=== PATIENT | male | born 1960 | race Caucasian/White ===

== ENCOUNTER 2019-06-16 10:10 | Outpatient (CLI) | payer MEDICARE, SELFPAY ==
[2019-06-16 13:21] LABS: Basophils Absolute Auto 0.1 K/mm3 (0.0-0.1); Basophils Percent Auto 0.7 % (0.2-1.2); Eosinophils Absolute Auto 0.4 K/mm3 (0-0.3); Eosinophils Percent Auto 4.5 % (0-4.4); Hematocrit 44.6 % (42.0-52.0); Hemoglobin 14.2 g/dL (14.0-18.0); Immature Granulocyte Absolute 0.01 K/mm3 (0.00-0.031); Immature Granulocyte Percent A 0.1 % (0-0.5); Lymphocytes Absolute Auto 1.97 K/mm3 (0.9-3.2); Lymphocytes Percent Auto 24.4 % (18.3-44.2); Mean Corpuscular HGB Conc 31.8 g/dl (32-36); Mean Corpuscular Hemoglobin 29.3 pg (26-34); Mean Platelet Volume 11.8 fl (7.4-10.4); Monocytes Absolute Auto 0.6 K/mm3 (0.1-0.6); Monocytes Percent Auto 6.8 % (2.6-8.5); Neutrophils Absolute Auto 5.1 K/mm3 (1.3-6.7); Neutrophils Percent Auto 63.5 % (45.5-73.1); Platelet Count Result 207 k/mm3 (150-375); Red Blood Count 4.85 M/mm3 (4.6-6.20); Red Cell Distribution Width 13.9 % (11.5-14.5); White Blood Count 8.1 K/mm3 (4.5-10.0)
[2019-06-16 13:25] LABS: Alanine Aminotransferase 21 U/L (4-50); Albumin Level 3.9 g/dL (3.5-5.1); Alkaline Phosphatase 78 U/L (38-126); Aspartate Amino Transferase 25 U/L (17-59); Bilirubin,Total 0.5 mg/dL (0.2-1.3); Blood Urea Nitrogen 18 mg/dL (9-20); Calcium 8.9 mg/dL (8.4-10.2); Carbon Dioxide 29 mmol/L (22-30); Chloride 102 mmol/L (98-107); Estimated Glomerular Filt Rate > 60; Glucose 121 mg/dL (75-110); Potassium 4.5 mmol/L (3.4-5.0); Sodium 138 mmol/L (137-145)
[2019-06-16 13:40] LABS: Hemoglobin A1C 6.5 % (<5.7)
[2019-06-16 16:15] LABS: Microalbumin Urine Random 10.8 mg/L (0-16.7)
[2019-06-16 16:26] LABS: Creatinine Urine 197.3 mg/dL; MALB Creatinine Ratio 5.5 mg/g (0-30)
== END 2019-06-16 10:11 | disposition home or self-care (01) ==
PROVIDERS: PCP Internal Medicine; Visit Provider Internal Medicine
DX: E11.9 Type 2 diabetes mellitus without complications (principal)
CPT/HCPCS: 36415; 80053; 82043; 83036; 85025

== ENCOUNTER 2019-11-10 07:26 | Outpatient (CLI) | payer MEDICARE, SELFPAY ==
[2019-11-10 08:19] LABS: Alanine Aminotransferase 19 U/L (4-50); Albumin Level 3.9 g/dL (3.5-5.1); Alkaline Phosphatase 67 U/L (38-126); Anion Gap 8.6 mmol/L (7-16); Aspartate Amino Transferase 22 U/L (17-59); Bilirubin,Total 0.1 mg/dL (0.2-1.3); Blood Urea Nitrogen 17 mg/dL (9-20); Calcium 8.7 mg/dL (8.4-10.2); Carbon Dioxide 33 mmol/L (22-30); Chloride 102 mmol/L (98-107); Cholesterol 131 mg/dL (0-200); Estimated Glomerular Filt Rate > 60; Glucose 110 mg/dL (75-110); HDL Direct 30 mg/dL; Potassium 4.6 mmol/L (3.4-5.0); Sodium 139 mmol/L (137-145); Triglycerides 151 mg/dL (<150)
[2019-11-10 08:29] LABS: Hemoglobin A1C 6.3 % (<5.7)
[2019-11-10 08:30] LABS: LDL Cholesterol Direct 78 mg/dL
[2019-11-10 08:45] LABS: Creatinine Urine 186.9 mg/dL
[2019-11-10 08:48] LABS: Prostate Specific Antigen 4.2 ng/mL (< OR = 4.0)
[2019-11-10 08:49] LABS: MALB Creatinine Ratio 5.9 mg/g (0-30); Microalbumin Urine Random 11.1 mg/L (0-16.7)
== END 2019-11-10 07:27 | disposition home or self-care (01) ==
PROVIDERS: PCP Internal Medicine; Visit Provider Internal Medicine
DX: E11.9 Type 2 diabetes mellitus without complications (principal); E78.00 Pure hypercholesterolemia, unspecified; Z12.5 Encounter for screening for malignant neoplasm of prostate
CPT/HCPCS: 36415; 80053; 80061; 82043; 83036; 84153; G0103

== ENCOUNTER 2020-05-16 07:54 | Outpatient (CLI) | payer MEDICARE, SELFPAY ==
[2020-05-16 08:32] LABS: Basophils Absolute Auto 0.1 K/mm3 (0.0-0.1); Basophils Percent Auto 0.6 % (0.2-1.2); Eosinophils Absolute Auto 0.3 K/mm3 (0-0.3); Eosinophils Percent Auto 3.2 % (0-4.4); Hematocrit 45.8 % (42.0-52.0); Hemoglobin 14.4 g/dL (14.0-18.0); Immature Granulocyte Absolute 0.03 K/mm3 (0.00-0.031); Immature Granulocyte Percent A 0.3 % (0-0.5); Lymphocytes Absolute Auto 1.63 K/mm3 (0.9-3.2); Lymphocytes Percent Auto 18.5 % (18.3-44.2); Mean Corpuscular HGB Conc 31.4 g/dl (32-36); Mean Corpuscular Hemoglobin 29.6 pg (26-34); Mean Platelet Volume 10.6 fl (7.4-10.4); Monocytes Absolute Auto 0.7 K/mm3 (0.1-0.6); Monocytes Percent Auto 8.2 % (2.6-8.5); Neutrophils Absolute Auto 6.1 K/mm3 (1.3-6.7); Neutrophils Percent Auto 69.2 % (45.5-73.1); Platelet Count Result 201 k/mm3 (150-375); Red Blood Count 4.87 M/mm3 (4.6-6.20); Red Cell Distribution Width 13.7 % (11.5-14.5); White Blood Count 8.8 K/mm3 (4.5-10.0)
[2020-05-16 08:43] LABS: Hemoglobin A1C 6.6 % (<5.7)
[2020-05-16 08:45] LABS: Alanine Aminotransferase 26 U/L (4-50); Albumin Level 4.1 g/dL (3.5-5.1); Alkaline Phosphatase 70 U/L (38-126); Anion Gap 3 mmol/L (8-16); Aspartate Amino Transferase 25 U/L (17-59); Bilirubin,Total 0.4 mg/dL (0.2-1.3); Blood Urea Nitrogen 23 mg/dL (9-20); Calcium 9.2 mg/dL (8.4-10.2); Carbon Dioxide 33 mmol/L (22-30); Chloride 104 mmol/L (98-107); Cholesterol 142 mg/dL (0-200); Estimated Glomerular Filt Rate > 60; Glucose 139 mg/dL (75-110); HDL Direct 33 mg/dL; Potassium 4.5 mmol/L (3.4-5.0); Sodium 140 mmol/L (137-145); Triglycerides 151 mg/dL (<150)
[2020-05-16 08:56] LABS: LDL Cholesterol Direct 81 mg/dL
[2020-05-16 09:14] LABS: Prostate Specific Antigen 4.2 ng/mL (< OR = 4.0); Thyroid Stimulating Hormone 0.098 uIU/mL (0.465-4.680)
[2020-05-16 09:20] LABS: Creatinine Urine 244.3 mg/dL
[2020-05-16 09:21] LABS: MALB Creatinine Ratio 4.3 mg/g (0-30); Microalbumin Urine Random 10.5 mg/L (0-16.7)
[2020-05-16 09:30] LABS: Vitamin D 25 Hydroxy 24.2 ng/mL
== END 2020-05-16 07:55 | disposition home or self-care (01) ==
PROVIDERS: PCP Internal Medicine; Visit Provider Internal Medicine
DX: E11.9 Type 2 diabetes mellitus without complications (principal); E78.5 Hyperlipidemia, unspecified; E03.9 Hypothyroidism, unspecified; R56.9 Unspecified convulsions; E78.2 Mixed hyperlipidemia; R97.20 Elevated prostate specific antigen [PSA]; E55.9 Vitamin D deficiency, unspecified
CPT/HCPCS: 36415; 80053; 80061; 82043; 82306; 83036; 84153; 84443; 85025

== ENCOUNTER → 2020-09-04 02:35 | Outpatient (CLI) | payer MEDICARE, SELFPAY ==
[2020-09-04 18:14] LABS: SARS-CoV-2 RNA PCR Negative
== END ==
PROVIDERS: PCP Internal Medicine; Visit Provider Internal Medicine Gastroenterology
DX: Z01.812 Encounter for preprocedural laboratory examination (principal); Z20.822 Contact with and (suspected) exposure to COVID-19
CPT/HCPCS: C9803; U0003; U0005

== ENCOUNTER 2020-09-07 01:10 | Day surgery (SDC) | payer MEDICARE, SELFPAY ==
[2020-08-31 11:29] VITALS: BMI 46.6
[2020-09-07 07:19] VITALS: BP 98/84; PULSE 52; RESP 20; TEMP 36.2; O2SAT 99
[2020-09-07] MEDS: LACTATED RINGERS 1,000 ML 150 ML IV CONT (07:23)
[2020-09-07 07:25] LABS: Glucose Point of Care 125 mg/dl (65-105)
--- NOTE | 2020-09-07 08:07 | WPDANESEPPF ---
Anes - Initial Pre Proc Eval Procedure: Operation Date: 09/07/20 08:45 Proposed Procedures p Esophagogastroduodenoscopy - Houston Gonzalez MD Date/Time: 09/07/20 08:07 Surgeon: Houston Gonzalez MD Pre Op Diagnosis: GERD, Vomiting Patient Data Age: 60 Gender: M Height: 6 ft Weight: 153.1 kg Last Vital Signs Temp 97.2 F L 09/07/20 07:19 Pulse 52 L 09/07/20 07:19 Resp 20 09/07/20 07:19 BP 98/84 L 09/07/20 07:19 Pulse Ox 99 09/07/20 07:19 Allergies Allergy/AdvReac Type Severity Reaction Status Date / Time No Known Allergies Allergy Verified 09/07/20 07:17 Home Medications Medication Instructions Recorded Confirmed Type aspirin 81 mg PO DAILY 03/11/19 09/07/20 History budesonide-formoterol [Symbicort] 2 puff INHALATION Q12H 03/11/19 09/07/20 History citalopram 10 mg PO DAILY 03/11/19 09/07/20 History nystatin 100,000 unit/gram topical 1 applic TOPICAL BID PRN 06/21/19 09/07/20 History powder atorvastatin 40 mg PO DAILY 08/31/20 09/07/20 History furosemide 40 mg tablet 40 mg PO DAILY #90 tablet 08/31/20 09/07/20 Rx levetiracetam 750 mg PO BID 08/31/20 09/07/20 History levothyroxine 100 mcg tablet 100 mcg PO DAILY #90 tablet 08/31/20 09/07/20 Rx metformin 500 mg PO BID 08/31/20 09/07/20 History potassium chloride 10 meq PO DAILY 08/31/20 09/07/20 History pramipexole 1 mg PO BID 08/31/20 09/07/20 History lisinopril 40 mg tablet 40 mg PO BID #180 tablet 09/07/20 09/07/20 Rx Laboratory Tests 09/07/20 07:23 POC Capillary Glucose 125 mg/dl H mg/dl (65-105) Patient hx anesthesia problems: none Family hx anesthesia problems: none PMFSH Past Medical History Medical History Asthma BMI 40.0-44.9, adult COPD (chronic obstructive pulmonary disease) CPAP (continuous positive airway pressure) dependence Due to chronic obstructive sleep apnea Depression Diabetes Type 2. Last A1c was 6.4 on 12/31/2018 DVT (deep venous thrombosis) Gout Hypercholesterolemia Hypertension Peripheral vascular disease Seizure After head injury 2009 Sleep apnea Wrist fracture Surgical History Surgical History H/O thumb surgery Left History of colonoscopy with polypectomy Hx of tonsillectomy Family History Family History Father Family history of heart disease in male family member before age 55 Family history of malignant neoplasm of kidney Family history of lung cancer Family history of diabetes mellitus in first degree relative Family history of congestive heart failure Diabetes mellitus Mother Family history of congestive heart failure Anemia Renal failure COPD (chronic obstructive pulmonary disease) Spinal stenosis Social History Social History Social History: Patient lives home alone. He is and has no children. He is disabled. His sister kentrell is his durable power patent attorney for healthcare. Smoking packs per day: 2 Smoking cigarettes per day: 40.0 Years smoked: 35 Smoking pack-years: 70.00 Smoking status: Former smoker Tobacco type: cigarettes Alcohol intake: never Substance use: current Substance use type: marijuana Other substance usage details: MEDICAL CANNIBAS Last use: Has medical card Living arrangements: alone Additional occupation/education comments: Disabled Gender identity (if verbalized by the patient): Male Spiritual care concerns: No Agree to blood products: Yes Anes - Eval Final PreProcedure Day of Procedure 09/07/20 08:07 Patient weight: morbidly obese Heart: regular rate and rhythm Lungs: clear to auscultation Airway: Mallampati scale class III Neurological: alert and oriented Last oral intake: >/= 8 hours ASA classification: IV Emergent: no Anes
--- NOTE | 2020-09-07 08:34 | PM.HPGS ---
History of Present Illness History of Present Illness Consent: Risks, benefits, and alternatives have been discussed and questions answered. Patient agrees to proceed with procedure. Chief complaint: GERD, Vomiting Narrative: Freddy Saha is a 60 year old male here for egd, had lap band procedure in 2007 and complaining that food feels like it is blocked . Review of Systems Constitutional: Constitutional: Denies headache(s) and Denies weakness Eyes: Eyes: Denies blurry vision ENT: Reports Normal hearing present, Denies headache(s) and Denies neck pain Cardiovascular: Cardiovascular: Denies chest pain and Denies dyspnea Respiratory: Respiratory: Denies dyspnea Gastrointestinal: Gastrointestinal: Reports no additional gastrointestinal complaints Genitourinary: Genitourinary: Denies dysuria Musculoskeletal: Musculoskeletal: Denies neck pain Integumentary/Breasts: Skin/Breast: Denies dry skin Neurologic: Reports Normal hearing present, Denies headache(s) and Denies weakness Psychiatric: Psychiatric: Denies anxiety Endocrine: Endocrine: Denies change in body appearance Hematologic/Lymphatic: Hematologic/Lymphatic: Denies easy bleeding Allergic/Immunologic: Allergic/Immunologic: Denies urticaria PMFSH Past Medical History Medical History (Updated 09/07/20 @ 08:34 by Houston Gonzalez MD) Asthma BMI 40.0-44.9, adult COPD (chronic obstructive pulmonary disease) CPAP (continuous positive airway pressure) dependence Due to chronic obstructive sleep apnea Depression Diabetes Type 2. Last A1c was 6.4 on 12/31/2018 DVT (deep venous thrombosis) Dysphagia Gout Hypercholesterolemia Hypertension Peripheral vascular disease Seizure After head injury 2010 Sleep apnea Wrist fracture Surgical History Surgical History H/O thumb surgery Left History of colonoscopy with polypectomy Hx of tonsillectomy Family History Family History Father Family history of heart disease in male family member before age 55 Family history of malignant neoplasm of kidney Family history of lung cancer Family history of diabetes mellitus in first degree relative Family history of congestive heart failure Diabetes mellitus Mother Family history of congestive heart failure Anemia Renal failure COPD (chronic obstructive pulmonary disease) Spinal stenosis Social History Social History Social History: Patient lives home alone. He is and has no children. He is disabled. His sister kentrell is his durable power ip attorney for healthcare. Smoking packs per day: 2 Smoking cigarettes per day: 40.0 Years smoked: 35 Smoking pack-years: 70.00 Smoking status: Former smoker Tobacco type: cigarettes Alcohol intake: never Substance use: current Substance use type: marijuana Other substance usage details: MEDICAL CANNIBAS Last use: Has medical card Living arrangements: alone Additional occupation/education comments: Disabled Gender identity (if verbalized by the patient): Male Spiritual care concerns: No Agree to blood products: Yes Meds Home Medications and Allergies Home Medications Medication Instructions Recorded Confirmed Type aspirin 81 mg PO DAILY 03/11/19 09/07/20 History budesonide-formoterol [Symbicort] 2 puff INHALATION Q12H 03/11/19 09/07/20 History citalopram 10 mg PO DAILY 03/11/19 09/07/20 History nystatin 100,000 unit/gram topical 1 applic TOPICAL BID PRN 06/21/19 09/07/20 History powder atorvastatin 40 mg PO DAILY 08/31/20 09/07/20 History furosemide 40 mg tablet 40 mg PO DAILY #90 tablet 08/31/20 09/07/20 Rx levetiracetam 750 mg PO BID 08/31/20 09/07/20 History levothyroxine 100 mcg tablet 100 mcg PO DAILY #90 tablet 08/31/20 09/07/20 Rx metformin 500 mg PO BID 08/31/2009/07
[2020-09-07 08:47] VITALS: BP 74/53; PULSE 61; RESP 16; O2SAT 97
[2020-09-07 08:57] VITALS: BP 93/37; PULSE 49; RESP 18; O2SAT 97
[2020-09-07 09:07] VITALS: BP 107/46; PULSE 50; RESP 19; O2SAT 97
== END 2020-09-07 09:22 | disposition home or self-care (01) ==
PROVIDERS: PCP Internal Medicine; Visit Provider Internal Medicine Gastroenterology
PROC: 0DJ08ZZ Inspection of Upper Intestinal Tract, Via Natural or Artificial Opening Endoscopic (ICD-10-PCS; CPT 43235; principal; 2020-09-07 08:45)
DX: R11.2 Nausea with vomiting, unspecified (principal); R13.10 Dysphagia, unspecified; K31.89 Other diseases of stomach and duodenum; Z98.84 Bariatric surgery status; I10 Essential (primary) hypertension; E78.00 Pure hypercholesterolemia, unspecified; E11.52 Type 2 diabetes mellitus with diabetic peripheral angiopathy with gangrene; G47.30 Sleep apnea, unspecified; G47.33 Obstructive sleep apnea (adult) (pediatric); M10.9 Gout, unspecified; Z86.718 Personal history of other venous thrombosis and embolism; Z79.84 Long term (current) use of oral hypoglycemic drugs; F32.9 Major depressive disorder, single episode, unspecified; Z87.891 Personal history of nicotine dependence; F12.90 Cannabis use, unspecified, uncomplicated; E66.01 Morbid (severe) obesity due to excess calories; Z68.42 Body mass index [BMI] 45.0-49.9, adult
CPT/HCPCS: 43235; 82948; C9803; J2704; J7120; U0003; U0005

== ENCOUNTER 2020-09-21 08:05 | Outpatient (CLI) | payer MEDICARE, SELFPAY ==
[2020-09-21 09:15] LABS: Free T4 Free Thyroxine 1.17 ng/mL (0.78-2.19)
== END 2020-09-21 08:06 | disposition home or self-care (01) ==
LOC: ANHLAB 08:07
PROVIDERS: PCP Internal Medicine; Visit Provider Internal Medicine
DX: E03.9 Hypothyroidism, unspecified (principal)
CPT/HCPCS: 36415; 84439; 84443

== ENCOUNTER 2020-10-11 13:11 | Outpatient (CLI) | payer MEDICARE, SELFPAY ==
[2020-10-11 18:15] LABS: MALB Creatinine Ratio < 7.0 mg/g (0-30); Microalbumin Urine Random < 6.0 mg/L (0-16.7)
[2020-10-11 20:01] LABS: Hemoglobin A1C 6.9 % (<5.7)
== END 2020-10-11 13:12 | disposition home or self-care (01) ==
LOC: ANHLAB 13:13
PROVIDERS: PCP Internal Medicine; Visit Provider Internal Medicine
DX: E11.9 Type 2 diabetes mellitus without complications (principal)
CPT/HCPCS: 36415; 82043; 83036

== ENCOUNTER 2021-01-25 08:46 | Outpatient (CLI) | payer MEDICARE, SELFPAY ==
[2021-01-25 09:25] LABS: Hemoglobin A1C 6.8 % (<5.7)
[2021-01-25 09:27] LABS: Alanine Aminotransferase 22 U/L (4-50); Albumin Level 4.1 g/dL (3.5-5.1); Alkaline Phosphatase 76 U/L (38-126); Anion Gap 6 mmol/L (8-16); Aspartate Amino Transferase 22 U/L (17-59); Bilirubin,Total 0.3 mg/dL (0.2-1.3); Blood Urea Nitrogen 17 mg/dL (9-20); Calcium 9.1 mg/dL (8.4-10.2); Carbon Dioxide 33 mmol/L (22-30); Chloride 103 mmol/L (98-107); Estimated Glomerular Filt Rate > 60; Glucose 139 mg/dL (65-110); Potassium 4.6 mmol/L (3.4-5.0); Sodium 142 mmol/L (137-145)
[2021-01-25 09:57] LABS: Prostate Specific Antigen 5.4 ng/mL (< OR = 4.0)
[2021-01-25 10:07] LABS: Microalbumin Urine Random 14.2 mg/L (0-16.7)
[2021-01-25 10:10] LABS: Creatinine Urine 216.2 mg/dL; MALB Creatinine Ratio 6.6 mg/g (0-30)
== END 2021-01-25 08:47 | disposition home or self-care (01) ==
LOC: ANHLAB 08:51
PROVIDERS: PCP Internal Medicine; Visit Provider Internal Medicine
DX: Z12.5 Encounter for screening for malignant neoplasm of prostate (principal); E11.65 Type 2 diabetes mellitus with hyperglycemia; Z51.81 Encounter for therapeutic drug level monitoring; Z79.4 Long term (current) use of insulin; I10 Essential (primary) hypertension; R97.20 Elevated prostate specific antigen [PSA]
CPT/HCPCS: 36415; 80053; 82043; 83036; 84153; G0103

== ENCOUNTER 2021-03-14 07:35 | Outpatient (CLI) | payer MEDICARE, SELFPAY ==
--- NOTE | 2021-04-02 15:42 | WPDSLEEPSTUD ---
Sleep Study Date of Study: 03/14/21 <Cecilia Cohn DO - Last Filed: 04/02/21 16:18> Ordering Provider: Pao Lopez MD <Cecilia Cohn DO - Last Filed: 04/02/21 16:18> Interpreting Physician: Cecilia Cohn DO <Cecilia Cohn DO - Last Filed: 04/02/21 16:18> Sleep Study Type: Split Polysomnogram <Cecilia Cohn DO - Last Filed: 04/02/21 16:18> Height: 1.82 m <Cecilia Cohn DO - Last Filed: 04/02/21 16:18> Weight: 154.675 kg <Cecilia Cohn DO - Last Filed: 04/02/21 16:18> Body Mass Index: 46.9 <Cecilia Cohn DO - Last Filed: 04/02/21 16:18> Neck Circumference (inches): 22 <Cecilia Cohn DO - Last Filed: 04/02/21 16:18> [place]: 4 <Cecilia Cohn DO - Last Filed: 04/02/21 16:18> Reason for Sleep Study Previous diagnosis of CLAYTON in 2003. Was prescribed BPAP 19/15 with back up rate of 14. Current machine is over 10 years old. <Cecilia Cohn DO - Last Filed: 04/02/21 16:18> Sleep History The patient is a 60-year-old male with asthma, COPD, depression, diabetes, gout, hyperlipidemia, hypertension, peripheral vascular disease, seizure disorder and sleep apnea that had a sleep study ordered by Dr. Lopez because the patient needs to requalify to get a new machine. the patient states that he frequently awakens from sleep short of breath. He denies awakening at night with heartburn, belching or cough. He constantly snores loud enough that others complain. He denies having trouble sleeping when he has a cold. He occasionally wakes up gasping for air throughout the night. He denies having breathing problems at night observed by others. He denies sweating excessively at night. He denies heart palpitations or irregular heartbeats throughout the night. He occasionally falls asleep during the day but never while driving. He occasionally experiences loss of muscle tone when extremely emotional. He denies sleep paralysis and hypnagogic/ hypnopompic hallucinations. He frequently feels afraid of going to sleep. He denies having nightmares. He occasionally has thoughts racing through his mind. He frequently feels sad or depressed. He denies having anxiety. He frequently notices parts of his body jerk. He constantly kicks during the night. He occasionally has crawling and aching feelings in his legs as well as leg pain during the night. He denies grinding his teeth during sleep and awakening with morning jaw pain. He is occasionally bothered by pain during the day but never awakened by pain during the night. He denies waking up feeling stiff in the morning with sore and achy muscles. He goes to bed at 1:30 a.m. on weekdays and between 530 and 6 am on the weekends. it takes him 10 minutes to fall asleep. He does not wake up throughout the night. He wakes up at 5:30 a.m. on both the weekends and weekdays. He typically gets 3-4 hours of sleep per night. He does not currently live with anyone. He does not consume any caffeinated beverages within 2 hours of bedtime. He does not engage in physical exercise before bedtime. He will watch television before falling asleep. He does take naps in the afternoon or the evening and they are refreshing. He is a former smoker. He does consume caffeinated soda throughout the day. He denies alcohol use. He does use medical marijuana. <Cecilia Cohn DO - Last Filed: 04/02/21 16:18> [facility] Past Medical History Medical History: Medical History Asthma BMI 40.0-44.9, adult COPD (chronic obstructive pulmonary disease) CPAP (continuous positive airway pressure) dependence Due to chronic obstructive sleep apnea Depression Diabetes Type 2. Last A1c was 6.4 on 12/31/2018 DVT (deep venous thrombosis) Dysphagia Gout Hypercholesterolemia Hypertension Obstructive sleep apnea Peripheral vascular disease Seizu
[2021-04-02 16:10] VITALS: BMI 46.9
== END 2021-03-15 06:47 | disposition home or self-care (01) ==
LOC: ANHCSM 07:39
PROVIDERS: PCP Internal Medicine; Visit Provider Internal Medicine Critical Care Medicine
DX: G47.33 Obstructive sleep apnea (adult) (pediatric) (principal)
CPT/HCPCS: 95811

== ENCOUNTER 2021-04-10 01:08 | Day surgery (SDC) | payer MEDICARE, SELFPAY ==
[2021-03-21 14:26] VITALS: BMI 47.5
[2021-04-10 09:10] LABS: Glucose Point of Care 139 mg/dl (65-105)
[2021-04-10 09:14] VITALS: BP 146/96; PULSE 60; RESP 18; TEMP 36.1; O2SAT 97
[2021-04-10] MEDS: LACTATED RINGERS 1,000 ML 150 ML IV CONT (09:28)
--- NOTE | 2021-04-10 10:05 | WPDANESEPPF ---
Anes - Initial Pre Proc Eval Procedure: Operation Date: 04/10/21 10:30 Proposed Procedures p Screening Colonoscopy - Houston Gonzalez MD Date/Time: 04/10/21 10:05 Surgeon: Houston Gonzalez MD Pre Op Diagnosis: hx of colon polyps Patient Data Age: 60 Gender: M Height: 1.8 m Weight: 155.8 kg Last Vital Signs Temp 97 F L 04/10/21 09:14 Pulse 60 04/10/21 09:14 Resp 18 04/10/21 09:14 BP 146/96 H 04/10/21 09:14 Pulse Ox 97 04/10/21 09:14 Allergies Allergy/AdvReac Type Severity Reaction Status Date / Time No Known Allergies Allergy Verified 04/10/21 09:12 Home Medications Medication Instructions Recorded Confirmed Type aspirin 81 mg PO DAILY 03/11/19 04/10/21 History budesonide-formoterol [Symbicort] 2 puff INHALATION Q12H 03/11/19 03/21/21 History nystatin 100,000 unit/gram topical 1 applic TOPICAL BID PRN #60 g 09/24/20 04/10/21 Rx powder metformin 500 mg tablet 500 mg PO BID #180 tablet 10/15/20 04/10/21 Rx potassium chloride 10 mEq 10 meq PO DAILY #90 tablet 10/15/20 04/10/21 Rx tablet,extended release atorvastatin 40 mg tablet 40 mg PO DAILY #90 tablet 11/09/20 03/21/21 Rx pramipexole 1 mg tablet 1 mg PO BID #180 tablet 11/09/20 04/10/21 Rx levetiracetam 750 mg tablet 750 mg PO BID 90 Days #180 tablet 11/26/20 04/10/21 Rx levothyroxine 100 mcg tablet 100 mcg PO DAILY #90 tablet 11/26/20 04/10/21 Rx dapagliflozin 5 mg tablet 5 mg PO DAILY #30 tablet 02/01/21 04/10/21 Rx furosemide 40 mg tablet 40 mg PO DAILY #90 tablet 02/08/21 04/10/21 Rx lisinopril 40 mg tablet 40 mg PO BID #180 tablet 03/25/21 Rx Laboratory Tests 04/10/21 09:06 POC Capillary Glucose 139 mg/dl H mg/dl (65-105) Patient hx anesthesia problems: none Family hx anesthesia problems: none Results Review: All pre-operative results and documents have been reviewed as part of the pre-operative evaluation. [facility] Past Medical History Medical History Asthma BMI 40.0-44.9, adult COPD (chronic obstructive pulmonary disease) CPAP (continuous positive airway pressure) dependence Due to chronic obstructive sleep apnea Depression Diabetes Type 2. Last A1c was 6.4 on 12/31/2018 DVT (deep venous thrombosis) Dysphagia Gout Hypercholesterolemia Hypertension Obstructive sleep apnea Peripheral vascular disease Seizure After head injury 2009 Sleep apnea Wrist fracture Surgical History Surgical History H/O thumb surgery Left History of colonoscopy with polypectomy Hx of tonsillectomy Family History Family History Father Family history of heart disease in male family member before age 55 Family history of malignant neoplasm of kidney Family history of lung cancer Family history of diabetes mellitus in first degree relative Family history of congestive heart failure Diabetes mellitus Mother Family history of congestive heart failure Anemia Renal failure COPD (chronic obstructive pulmonary disease) Spinal stenosis Social History Social History Social History: Patient lives home alone. He is and has no children. He is disabled. His sister kentrell is his durable power deputy commonwealth's attorney for healthcare. Smoking packs per day: 2 Smoking cigarettes per day: 40.0 Years smoked: 35 Smoking pack-years: 70.00 Smoking status: Former smoker Tobacco type: cigarettes Smoking end date: 04/14/99 Alcohol intake: never Substance use: current Substance use type: marijuana Other substance usage details: MEDICAL CANNIBAS Last use: Has medical card Living arrangements: alone Additional occupation/education comments: Disabled Gender identity (if verbalized by the patient): Male Spiritual care concerns: No Agree to blood
--- NOTE | 2021-04-10 10:05 | PM.HPGS ---
History of Present Illness History of Present Illness Consent: Risks, benefits, and alternatives have been discussed and questions answered. Patient agrees to proceed with procedure. Chief complaint: hx of colon polyps Narrative: Freddy Saha is a 60 year old male here for screening colonoscopy Review of Systems Constitutional: Constitutional: Denies headache(s) and Denies weakness Eyes: Eyes: Denies blurry vision ENT: Reports Normal hearing present, Denies headache(s) and Denies neck pain Cardiovascular: Cardiovascular: Denies chest pain and Denies dyspnea Respiratory: Respiratory: Denies dyspnea Gastrointestinal: Gastrointestinal: Reports no additional gastrointestinal complaints Genitourinary: Genitourinary: Denies dysuria Musculoskeletal: Musculoskeletal: Denies neck pain Integumentary/Breasts: Skin/Breast: Denies dry skin Neurologic: Reports Normal hearing present, Denies headache(s) and Denies weakness Psychiatric: Psychiatric: Denies anxiety Endocrine: Endocrine: Denies change in body appearance Hematologic/Lymphatic: Hematologic/Lymphatic: Denies easy bleeding Allergic/Immunologic: Allergic/Immunologic: Denies urticaria PMFSH Past Medical History Medical History Asthma BMI 40.0-44.9, adult COPD (chronic obstructive pulmonary disease) CPAP (continuous positive airway pressure) dependence Due to chronic obstructive sleep apnea Depression Diabetes Type 2. Last A1c was 6.4 on 12/31/2018 DVT (deep venous thrombosis) Dysphagia Gout Hypercholesterolemia Hypertension Obstructive sleep apnea Peripheral vascular disease Seizure After head injury 2009 Sleep apnea Wrist fracture Surgical History Surgical History H/O thumb surgery Left History of colonoscopy with polypectomy Hx of tonsillectomy Family History Family History Father Family history of heart disease in male family member before age 55 Family history of malignant neoplasm of kidney Family history of lung cancer Family history of diabetes mellitus in first degree relative Family history of congestive heart failure Diabetes mellitus Mother Family history of congestive heart failure Anemia Renal failure COPD (chronic obstructive pulmonary disease) Spinal stenosis Social History Social History Social History: Patient lives home alone. He is and has no children. He is disabled. His sister kentrell is his durable power language instructor for healthcare. Smoking packs per day: 2 Smoking cigarettes per day: 40.0 Years smoked: 35 Smoking pack-years: 70.00 Smoking status: Former smoker Tobacco type: cigarettes Smoking end date: 04/14/99 Alcohol intake: never Substance use: current Substance use type: marijuana Other substance usage details: MEDICAL CANNIBAS Last use: Has medical card Living arrangements: alone Additional occupation/education comments: Disabled Gender identity (if verbalized by the patient): Male Spiritual care concerns: No Agree to blood products: Yes Meds Home Medications and Allergies Home Medications Medication Instructions Recorded Confirmed Type aspirin 81 mg PO DAILY 03/11/19 04/10/21 History budesonide-formoterol [Symbicort] 2 puff INHALATION Q12H 03/11/19 03/21/21 History nystatin 100,000 unit/gram topical 1 applic TOPICAL BID PRN #60 g 09/24/20 04/10/21 Rx powder metformin 500 mg tablet 500 mg PO BID #180 tablet 10/15/20 04/10/21 Rx potassium chloride 10 mEq 10 meq PO DAILY #90 tablet 10/15/20 04/10/21 Rx tablet,extended release atorvastatin 40 mg tablet 40 mg PO DAILY #90 tablet 11/09/20 03/21/21 Rx pramipexole 1 mg tablet 1 mg PO BID #180 tablet 11/09/20 04/10/21 Rx levetiracetam 750 mg tablet 750 mg PO BID 9
[2021-04-10 10:36] VITALS: BP 141/102; PULSE 58; RESP 22; O2SAT 94
[2021-04-10 10:46] VITALS: BP 116/72; PULSE 56; RESP 26; O2SAT 97
[2021-04-10 10:56] VITALS: BP 125/105; PULSE 53; RESP 21; O2SAT 97
== END 2021-04-10 11:11 | disposition home or self-care (01) ==
PROVIDERS: PCP Internal Medicine; Visit Provider Internal Medicine Gastroenterology
PROC: 0DJD8ZZ Inspection of Lower Intestinal Tract, Via Natural or Artificial Opening Endoscopic (ICD-10-PCS; CPT 45378; principal; 2021-04-10 10:30)
DX: Z12.11 Encounter for screening for malignant neoplasm of colon (principal); D12.3 Benign neoplasm of transverse colon; K63.5 Polyp of colon; K64.8 Other hemorrhoids; J44.9 Chronic obstructive pulmonary disease, unspecified; F32.9 Major depressive disorder, single episode, unspecified; I10 Essential (primary) hypertension; E78.00 Pure hypercholesterolemia, unspecified; M10.9 Gout, unspecified; G47.33 Obstructive sleep apnea (adult) (pediatric); E11.51 Type 2 diabetes mellitus with diabetic peripheral angiopathy without gangrene; Z79.84 Long term (current) use of oral hypoglycemic drugs; Z79.82 Long term (current) use of aspirin; Z79.51 Long term (current) use of inhaled steroids; Z87.891 Personal history of nicotine dependence; F12.90 Cannabis use, unspecified, uncomplicated; E66.01 Morbid (severe) obesity due to excess calories; Z68.42 Body mass index [BMI] 45.0-49.9, adult
CPT/HCPCS: 45380; 45385; 82948; 88305; J2704; J7120

== ENCOUNTER 2021-05-03 07:00 | Outpatient (CLI) | payer MEDICARE, SELFPAY ==
[2021-05-03 07:39] LABS: Basophils Absolute Auto 0.1 K/mm3 (0.0-0.1); Basophils Percent Auto 0.7 % (0.2-1.2); Eosinophils Absolute Auto 0.3 K/mm3 (0-0.3); Eosinophils Percent Auto 3.1 % (0-4.4); Hematocrit 48.8 % (42.0-52.0); Hemoglobin 15.4 g/dL (14.0-18.0); Immature Granulocyte Absolute 0.03 K/mm3 (0.00-0.031); Immature Granulocyte Percent A 0.3 % (0-0.5); Lymphocytes Absolute Auto 2.33 K/mm3 (0.9-3.2); Lymphocytes Percent Auto 26.5 % (18.3-44.2); Mean Corpuscular HGB Conc 31.6 g/dl (32-36); Mean Corpuscular Hemoglobin 29.1 pg (26-34); Mean Corpuscular Volume 92.1 fl (80-100); Mean Platelet Volume 10.2 fl (7.4-10.4); Monocytes Absolute Auto 0.6 K/mm3 (0.1-0.6); Monocytes Percent Auto 7.3 % (2.6-8.5); Neutrophils Absolute Auto 5.5 K/mm3 (1.3-6.7); Neutrophils Percent Auto 62.1 % (45.5-73.1); Platelet Count Result 228 k/mm3 (150-375); Red Cell Distribution Width 14.4 % (11.5-14.5); White Blood Count 8.8 K/mm3 (4.5-10.0)
[2021-05-03 08:08] LABS: Creatinine Urine 274.9 mg/dL
[2021-05-03 08:11] LABS: MALB Creatinine Ratio 8.2 mg/g (0-30); Microalbumin Urine Random 22.6 mg/L (0-16.7)
[2021-05-03 08:38] LABS: Hemoglobin A1C 7.1 % (<5.7)
[2021-05-03 09:06] LABS: Vitamin D 25 Hydroxy < 12.8 ng/mL
[2021-05-03 09:34] LABS: Alanine Aminotransferase 31 U/L (4-50); Albumin Level 4.2 g/dL (3.5-5.1); Alkaline Phosphatase 84 U/L (38-126); Anion Gap 5 mmol/L (8-16); Aspartate Amino Transferase 26 U/L (17-59); Bilirubin,Total 0.4 mg/dL (0.2-1.3); Blood Urea Nitrogen 20 mg/dL (9-20); Carbon Dioxide 33 mmol/L (22-30); Chloride 102 mmol/L (98-107); Cholesterol 139 mg/dL (0-200); Estimated Glomerular Filt Rate > 60; Glucose 145 mg/dL (65-110); HDL Direct 31 mg/dL; Sodium 140 mmol/L (137-145); Triglycerides 110 mg/dL (<150)
[2021-05-03 09:44] LABS: LDL Cholesterol Direct 86 mg/dL
[2021-05-03 10:03] LABS: Prostate Specific Antigen 4.3 ng/mL (< OR = 4.0)
== END 2021-05-03 07:01 | disposition home or self-care (01) ==
PROVIDERS: PCP Internal Medicine; Visit Provider Internal Medicine
DX: E55.9 Vitamin D deficiency, unspecified (principal); E03.9 Hypothyroidism, unspecified; E11.9 Type 2 diabetes mellitus without complications; E11.65 Type 2 diabetes mellitus with hyperglycemia; E78.00 Pure hypercholesterolemia, unspecified; F32.9 Major depressive disorder, single episode, unspecified; I10 Essential (primary) hypertension; R56.9 Unspecified convulsions; R97.20 Elevated prostate specific antigen [PSA]; Z79.4 Long term (current) use of insulin; Z12.5 Encounter for screening for malignant neoplasm of prostate; E78.2 Mixed hyperlipidemia
CPT/HCPCS: 36415; 80053; 80061; 82043; 82306; 83036; 84153; 84443; 85025; G0103

== ENCOUNTER 2021-08-09 09:36 | Outpatient (CLI) | payer MEDICARE, SELFPAY ==
[2021-08-09 10:28] LABS: Hemoglobin A1C 6.8 % (<5.7)
[2021-08-09 10:30] LABS: Alanine Aminotransferase 27 U/L (4-50); Alkaline Phosphatase 81 U/L (38-126); Anion Gap 5 mmol/L (8-16); Aspartate Amino Transferase 26 U/L (17-59); Bilirubin,Total 0.2 mg/dL (0.2-1.3); Blood Urea Nitrogen 16 mg/dL (9-20); Carbon Dioxide 30 mmol/L (22-30); Chloride 105 mmol/L (98-107); Estimated Glomerular Filt Rate > 60; Glucose 126 mg/dL (65-110); Potassium 4.3 mmol/L (3.4-5.0); Sodium 140 mmol/L (137-145)
[2021-08-09 10:33] LABS: Creatinine Urine 79.2 mg/dL
[2021-08-09 10:38] LABS: MALB Creatinine Ratio 19.9 mg/g (0-30); Microalbumin Urine Random 15.8 mg/L (0-16.7)
== END 2021-08-09 09:37 | disposition home or self-care (01) ==
PROVIDERS: Visit Provider Internal Medicine
DX: E11.65 Type 2 diabetes mellitus with hyperglycemia (principal); Z79.4 Long term (current) use of insulin
CPT/HCPCS: 36415; 80053; 82043; 83036

== ENCOUNTER 2021-08-14 07:31 | Outpatient (CLI) | payer MEDICARE, SELFPAY ==
--- NOTE | ~2021-08-14 | XR_ITS ---
EXAMINATION: XR barium swallow modified DATE: 08/14/2021 08:29 INDICATION: Dysphagia TECHNIQUE: Modified barium esophagram was performed by myself to administered fluoroscopy, in conjun ction with speech pathologist who administered barium in varying consistencies as per speech patholog ist documentation. This was recorded on tape. A single fluoroscopic spot image was recorded. The DAP for this procedure was 2.463 Gycm2. Fluoroscopy exposure time was 2.0 minutes. FINDINGS: Oral stage: Adequate function. Pharyngeal phase: Adequate function. Laryngeal penetration: None. Aspiration: None. Laryngeal sensitivity: Not applicable. IMPRESSION: Normal modified barium swallow. Please refer to speech pathologist findings and specific feeding recommendations. Reviewed, dictated and finalized at location A.
--- NOTE | 2021-08-14 16:30 | STOPEVAL ---
MODIFIED BARIUM SWALLOW EVALUATION: Thank you for referring Freddy Saha to [facility].? Attending Provider: Josh Rosenberg MD Modified Barium Swallow Evaluation Recent Swallowing History Reports Dysphagia Yes: hard time getting food to go down Duration of Dysphagia 12 years History of Pneumonia No Reported Difficult Consistencies Solids Diet Prior to Swallow Evaluation Regular, Level 7 Liquid Consistency Prior to Swallow Thin (0) Evaluation Consistency Solid Consistency Method of Presentation Spoon Oral Preparatory Symptoms None Oral Phase Symptoms None Pharyngeal Phase Symptoms None Severity of Vallecular Residue None - 0% No Residue Severity of Pyriform Sinus Residue None - 0% No Residue Cervical/Esophageal Symptoms None Mixed Consistency Method of Presentation Spoon Oral Preparatory Symptoms None Oral Phase Symptoms None Pharyngeal Phase Symptoms None Severity of Vallecular Residue None - 0% No Residue Severity of Pyriform Sinus Residue None - 0% No Residue 8 Point Laryngeal Penetration-Aspiration Material Does Not Enter Airway Scale Cervical/Esophageal Symptoms None Pureed Consistency Method of Presentation Spoon Oral Preparatory Symptoms None Oral Phase Symptoms None Pharyngeal Phase Symptoms None Severity of Vallecular Residue None - 0% No Residue Severity of Pyriform Sinus Residue None - 0% No Residue 8 Point Laryngeal Penetration-Aspiration Material Does Not Enter Airway Scale Cervical/Esophageal Symptoms None Thin Uncontrolled 2 Method of Presentation Straw Oral Preparatory Symptoms None Oral Phase Symptoms None Pharyngeal Phase Symptoms None Severity of Vallecular Residue None - 0% No Residue Severity of Pyriform Sinus Residue None - 0% No Residue 8 Point Laryngeal Penetration-Aspiration Material Does Not Enter Airway Scale Cervical/Esophageal Symptoms None Thin Uncontrolled 1 Method of Presentation Cup Oral Preparatory Symptoms None Oral Phase Symptoms None Pharyngeal Phase Symptoms None Severity of Vallecular Residue None - 0% No Residue Severity of Pyriform Sinus Residue None - 0% No Residue 8 Point Laryngeal Penetration-Aspiration Material Does Not Enter Airway Scale Cervical/Esophageal Symptoms None Thin 5 mL Method of Presentation Spoon Oral Preparatory Symptoms None Oral Phase Symptoms None Pharyngeal Phase Symptoms None Severity of Vallecular Residue None - 0% No Residue Severity of Pyriform Sinus Residue None - 0% No Residue 8 Point Laryngeal Penetration-Aspiration Material Does Not Enter Airway Scale
== END 2021-08-14 07:32 | disposition home or self-care (01) ==
PROVIDERS: PCP Internal Medicine; Visit Provider Internal Medicine
DX: R13.10 Dysphagia, unspecified (principal)
CPT/HCPCS: 92611

== ENCOUNTER 2022-06-27 10:01 | Outpatient (CLI) | payer MEDICARE, SELFPAY ==
[2022-06-27 11:32] LABS: Alanine Aminotransferase 26 U/L (6-50); Albumin Level 4.3 g/dL (3.5-5.1); Alkaline Phosphatase 86 U/L (38-126); Anion Gap 6 mmol/L (8-16); Aspartate Amino Transferase 27 U/L (17-59); Bilirubin,Total 0.5 mg/dL (0.2-1.3); Blood Urea Nitrogen 17 mg/dL (9-20); Carbon Dioxide 33 mmol/L (22-30); Chloride 102 mmol/L (98-107); Cholesterol 150 mg/dL (0-200); Estimated Glomerular Filt Rate > 60; Glucose 117 mg/dL (65-110); HDL Direct 28 mg/dL; Potassium 4.2 mmol/L (3.4-5.0); Sodium 141 mmol/L (137-145); Triglycerides 224 mg/dL (<150)
[2022-06-27 11:42] LABS: LDL Cholesterol Direct 87 mg/dL
[2022-06-27 12:00] LABS: Prostate Specific Antigen 5.4 ng/mL (< OR = 4.0)
== END 2022-06-27 10:02 | disposition home or self-care (01) ==
PROVIDERS: PCP Internal Medicine; Visit Provider Nurse Practitioner
DX: E55.9 Vitamin D deficiency, unspecified (principal); E03.9 Hypothyroidism, unspecified; R97.20 Elevated prostate specific antigen [PSA]; E78.5 Hyperlipidemia, unspecified; Z79.4 Long term (current) use of insulin; E11.65 Type 2 diabetes mellitus with hyperglycemia
CPT/HCPCS: 36415; 80053; 80061; 82306; 83036; 84153; 84443

== ENCOUNTER 2022-07-02 14:51 | Outpatient (CLI) | payer MEDICARE, SELFPAY ==
--- NOTE | ~2022-07-02 | CT_ITS ---
EXAMINATION: CT soft tissue neck wo con DATE: 07/02/2022 15:10 INDICATION: Left neck mass. TECHNIQUE: Computed tomography (CT) of the neck was performed without intravenous contrast. Automated exposure control and iterative reconstruction technique were employed. The dose-length product was 5 61.13 mGy-cm. COMPARISON: Brain MRI 12/07/2012 FINDINGS: There is a 3.6 x 1.7 cm mass in left parotid gland. There are no pathologically enlarged ly mph nodes. There is mild cervical spondylosis. IMPRESSION: 1. 3.6 x 1.7 cm mass in left parotid gland, new from 12/07/12. The differential diagnosis includes tasha gn mixed tumor, Warthin tumor, and less likely primary malignancy. Reviewed, dictated and finalized at location A. IMPRESSION: 1. 3.6 x 1.7 cm mass in left parotid gland, new from 12/07/12. The differential d iagnosis includes benign mixed tumor, Warthin tumor, and less likely primary ma lignancy.
== END 2022-07-02 14:52 | disposition home or self-care (01) ==
PROVIDERS: PCP Internal Medicine; Visit Provider Nurse Practitioner
DX: K11.9 Disease of salivary gland, unspecified (principal)
CPT/HCPCS: 70490

== ENCOUNTER 2022-08-11 08:42 | Outpatient (CLI) | payer MEDICARE, SELFPAY ==
--- NOTE | ~2022-08-11 | US_ITS ---
EXAMINATION: US FNA w image guidance DATE: 08/11/2022 09:42 INDICATION: Other diseases of salivary glands. TECHNIQUE: The procedure and its benefits and risks were discussed with the patient. Risks specifically discusse d included bleeding, infection, and nerve injury. The patient verbalized understanding of the risks a nd agreed to proceed. The left face was prepped and draped in the usual sterile manner. 1% lidocaine was used for local anesthesia. An 18-gauge spinal needle was inserted into the predominantly cystic left parotid mass using ultrasound guidance. 8 mL frausto, cloudy fluid was aspirated. 6 passes were made with a 25G needle into the remaining solid portion of the lesion under ultrasound guidance. There w ere no immediate complications. FINDINGS: Grayscale ultrasound images demonstrate needles advanced into a 3.4 x 2.8 x 2.5 cm predominantly cyst ic mass in left parotid gland for biopsy. IMPRESSION: 1. Ultrasound-guided fine needle aspiration of a 3.4 cm cystic mass in left parotid gland. Reviewed, dictated and finalized at location A. IMPRESSION: 1. Ultrasound-guided fine needle aspiration of a 3.4 cm cystic mass in left pa rotid gland.
== END 2022-08-11 08:43 | disposition home or self-care (01) ==
PROVIDERS: PCP Internal Medicine; Visit Provider Otolaryngology
DX: K11.8 Other diseases of salivary glands (principal)
CPT/HCPCS: 10005; 88108; 88305

== ENCOUNTER 2023-01-06 08:12 | Outpatient (CLI) | payer MEDICARE, SELFPAY ==
[2023-01-06 08:47] LABS: Alanine Aminotransferase 29 U/L (6-50); Alkaline Phosphatase 64 U/L (38-126); Anion Gap 6 mmol/L (8-16); Aspartate Amino Transferase 27 U/L (17-59); Bilirubin,Total 0.6 mg/dL (0.2-1.3); Blood Urea Nitrogen 21 mg/dL (9-20); Calcium 8.8 mg/dL (8.4-10.2); Carbon Dioxide 31 mmol/L (22-30); Chloride 103 mmol/L (98-107); Cholesterol 168 mg/dL (0-200); Estimated Glomerular Filt Rate > 60; Glucose 121 mg/dL (65-110); HDL Direct 33 mg/dL; Potassium 4.2 mmol/L (3.4-5.0); Sodium 140 mmol/L (137-145); Triglycerides 150 mg/dL (<150)
[2023-01-06 08:51] LABS: Hemoglobin A1C 6.8 % (<5.7)
[2023-01-06 08:58] LABS: LDL Cholesterol Direct 100 mg/dL
== END 2023-01-06 08:13 | disposition home or self-care (01) ==
PROVIDERS: PCP Nurse Practitioner; Visit Provider Nurse Practitioner
DX: E78.5 Hyperlipidemia, unspecified (principal); E11.9 Type 2 diabetes mellitus without complications
CPT/HCPCS: 36415; 80053; 80061; 83036

== ENCOUNTER 2023-01-06 23:39 | Observation (INO) | payer MEDICARE, SELFPAY ==
--- NOTE | ~2023-01-06 | CT_ITS ---
CT of the Abdomen and Pelvis: Indication: Pelvic pain Technique: 2.5 mm axial scans were obtained through the abdomen and pelvis following intravenous adm inistration of 100 cc of Omnipaque 350. Dose reduction technique was used on this scan by utilizing a utomated exposure control and iterative reconstruction technique. The dose-length product (DLP) was 1 972.88 mGy-cm. Findings: Scans through the lung bases are unremarkable. The liver, spleen, pancreas, adrenals and kidneys are within normal limits. Probable small gallstones present. There are atherosclerotic calcifications of the aorta. No lymphadenopathy. No bowel obstruction or bowel wall thickening. There is no evidence to suggest acute appendicitis. LA P-band in place. Images through the pelvis were performed. Urinary bladder unremarkable. Prostate gland and seminal ve sicles are unremarkable. Small fat-containing left inguinal hernia noted. No ascites. Impression: Small fat-containing left inguinal hernia. Probable small gallstones. Lap band in place. Reviewed, dictated and finalized at location . Impression: Small fat-containing left inguinal hernia. Probable small gallstones. Lap band in place.
--- NOTE | ~2023-01-06 | MR_ITS ---
EXAMINATION: MR lumbar spine wo con DATE: 01/07/2023 17:40 INDICATION: low back pain, history of prostate cancer. TECHNIQUE: Magnetic resonance imaging (MRI) of the lumbar spine was performed without intravenous con trast. Sequences included sagittal T2-weighted FSE, sagittal T2-weighted FS FSE, sagittal T1-weighted FSE, and axial T2-weighted FSE. COMPARISON: X-ray L-spine 01/02/2014 FINDINGS: The last fully formed and hydrated disc is designated L5-S1. The marrow signal is benign an d homogenous. Conus terminates at L2. Multilevel loss of disc height and hydration. The following dis c levels are specifically discussed: T11-T12: Mild diffuse bulge. There is mild facet joint osteoarthritis. There is no neural foraminal s tenosis. There is no central canal stenosis. T12-L1: Mild diffuse bulge. There is mild facet joint osteoarthritis. There is no neural foraminal st enosis. There is no central canal stenosis. L1-L2: 3 mm left paracentral disc protrusion. There is moderate facet joint osteoarthritis. There is no neural foraminal stenosis. There is no central canal stenosis. L2-L3: The disc does not extend beyond the endplate margin. There is moderate bilateral facet joint o steoarthritis. There is no neural foraminal stenosis. There is no central canal stenosis. L3-L4: 8mm left subarticular extrusion extending 11 mm along the posterior aspect of the L4 vertebral body. There is moderate bilateral facet joint osteoarthritis. There is mild bilateral neural foramin al stenosis. There is severe central canal stenosis. L4-L5: 5 mm right lateral disc protrusion. Posterior disc rent. There is moderate bilateral facet katty nt osteoarthritis. There is mild right neural foraminal stenosis. There is moderate central canal adan nosis. L5-S1: Moderate diffuse bulge. Posterior disc rent. There is severe bilateral facet joint osteoarthri tis. There is moderate right and severe left neural foraminal stenosis. There is moderate central can al stenosis. IMPRESSION: 8 x 11 mm left L3-4 disc extrusion causing severe central canal stenosis. Severe left neural foraminal stenosis at L5-S1 secondary to degenerative disc and facet change. Degenerative disc changes at multiple additional levels as detailed above. Multilevel moderate facet arthropathy. Reviewed, dictated and finalized at location K. IMPRESSION: 8 x 11 mm left L3-4 disc extrusion causing severe central canal stenosis. Severe left neural foraminal stenosis at L5-S1 secondary to degenerative disc a nd facet change. Degenerative disc changes at multiple additional levels as detailed above. Multilevel moderate facet arthropathy.
--- NOTE | ~2023-01-06 | US_ITS ---
EXAMINATION: US scrotum doppler DATE: 01/07/2023 20:35 INDICATION: swollen testicles . TECHNIQUE: Grayscale and Doppler ultrasound images of the testes were obtained. COMPARISON: None. FINDINGS: The right testis measures 4.2 x 2.6 x 3.0 cm. The left testis measures 4.4 x 2.6 x 3.2 cm. No testicular mass. There is normal vascular flow to both testes. The right epididymis is heterogeneo us, with normal vascular flow. The left epididymis contains multiple subcentimeter cysts, with normal vascular flow. There is no varicocele or hydrocele. IMPRESSION: Scrotal wall thickening, may be secondary to edema or inflammatory change. Small bilateral hydroceles. Debris noted within the right hydrocele. Reviewed, dictated and finalized at location K.
[2023-01-06 23:41] VITALS: BP 120/64; PULSE 60; RESP 15; TEMP 36.6; O2SAT 96
[2023-01-07] VITALS (7 sets, daily range): BP systolic 130–155; BP diastolic 63–79; PULSE 50–92; RESP 15–18; TEMP 36.4; O2SAT 93–98
[2023-01-07 00:37] LABS: Basophils Absolute Auto 0.1 K/mm3 (0.0-0.1); Basophils Percent Auto 0.7 % (0.2-1.2); Eosinophils Absolute Auto 0.3 K/mm3 (0-0.3); Eosinophils Percent Auto 3.4 % (0-4.4); Hematocrit 43.3 % (42.0-52.0); Hemoglobin 13.7 g/dL (14.0-18.0); Immature Granulocyte Absolute 0.01 K/mm3 (0.00-0.031); Immature Granulocyte Percent A 0.1 % (0-0.5); Lymphocytes Absolute Auto 1.83 K/mm3 (0.9-3.2); Lymphocytes Percent Auto 21.4 % (18.3-44.2); Mean Corpuscular HGB Conc 31.6 g/dl (32-36); Mean Corpuscular Hemoglobin 29.3 pg (26-34); Mean Corpuscular Volume 92.5 fl (80-100); Mean Platelet Volume 10.9 fl (7.4-10.4); Monocytes Absolute Auto 0.6 K/mm3 (0.1-0.6); Monocytes Percent Auto 7.4 % (2.6-8.5); Neutrophils Absolute Auto 5.7 K/mm3 (1.3-6.7); Platelet Count Result 202 k/mm3 (150-375); Red Blood Count 4.68 M/mm3 (4.6-6.20); Red Cell Distribution Width 13.7 % (11.5-14.5); White Blood Count 8.6 K/mm3 (4.5-10.0)
[2023-01-07] MEDS: HYDROmorphone HCL INJ (*CRX) 1 MG/ML SYR IV PUSH (00:47)
[2023-01-07 00:49] LABS: Prothrombin Time 13.4 Seconds (11.1-14.7)
[2023-01-07 00:54] LABS: Alanine Aminotransferase 27 U/L (6-50); Albumin Level 3.9 g/dL (3.5-5.1); Alkaline Phosphatase 60 U/L (38-126); Anion Gap 4 mmol/L (8-16); Aspartate Amino Transferase 26 U/L (17-59); Bilirubin,Total 0.5 mg/dL (0.2-1.3); Blood Urea Nitrogen 19 mg/dL (9-20); Calcium 8.5 mg/dL (8.4-10.2); Carbon Dioxide 31 mmol/L (22-30); Chloride 103 mmol/L (98-107); Estimated CRCL calculation 110 ml/min; Estimated Glomerular Filt Rate > 60; Glucose 97 mg/dL (65-110); Potassium 3.7 mmol/L (3.4-5.0); Sodium 138 mmol/L (137-145)
[2023-01-07 01:13] LABS: Appearance Urine Clear (Clear); Bacteria Urine None Seen /hpf; Bilirubin Urine Negative (Negative); Blood Urine Negative (Negative); Color Urine Yellow (Yellow); Glucose Urine UA 1+ mg/dL (Negative); Ketones Urine Negative (Negative); Leukocyte Esterase Ur Negative LEU/UL (Negative); Nitrate Urine Negative (Negative); Non Pathogenic Casts 0-2; Protein Urine Trace mg/dL (Negative); RBC Urine 0-2 /hpf (0-2); Specific Grav Ur 1.031 (1.001-1.035); Squamous Epithelial Cell Urine None seen /hpf (Few); WBC Urine 0-5 /hpf; pH Urine 5.5 (5.0-9.0)
--- NOTE | 2023-01-07 01:21 | ED.GENADULT ---
HPI - General Adult General Chief complaint: Extremity Injury, Lower Stated complaint: BILATERAL LEG PAIN Time Seen by Provider: 01/06/23 23:46 History of Present Illness HPI narrative: Patient brought to the emergency department by EMS. He developed severe pelvic pain just prior to arrival. He had prostate biopsy done 2 months ago. Since then he has had increasing perineal pain. Normally it is worse with movement however tonight when he laid down in his bed became severe. Upon my exam he is comfortable. Denies all other review of systems. Also has history of sciatica Related Data Home Medications Medication Instructions Recorded Confirmed aspirin 81 mg chewable tablet 81 mg PO DAILY 03/11/19 10/29/22 Allergies Allergy/AdvReac Type Severity Reaction Status Date / Time No Known Allergies Allergy Verified 12/30/22 08:59 Review of Systems Review of Systems: Review of systems negative except what is documented in the [facility] Past Medical History Medical History Asthma BMI 40.0-44.9, adult COPD (chronic obstructive pulmonary disease) Depression Diabetes Type 2. Last A1c was 6.4 on 12/31/2018 DVT (deep venous thrombosis) Dysphagia Gout Hypercholesterolemia Hypertension Obesity Obstructive sleep apnea Peripheral vascular disease Prostate cancer Seizure After head injury 2009 Sleep apnea Wrist fracture Surgical History Surgical History H/O thumb surgery Left History of biopsy History of colonoscopy with polypectomy Hx of tonsillectomy Family History Family History Father Family history of heart disease in male family member before age 55 Family history of malignant neoplasm of kidney Family history of lung cancer Family history of diabetes mellitus in first degree relative Family history of congestive heart failure Diabetes mellitus Mother Family history of congestive heart failure Anemia Renal failure COPD (chronic obstructive pulmonary disease) Spinal stenosis Social History Social History Social History: Patient lives home alone. He is and has no children. He is disabled. His sister kentrell is his durable power property valuer for healthcare. Smoking packs per day: 2 Smoking cigarettes per day: 40.0 Years smoked: 35 Smoking pack-years: 70.00 Smoking status: Former smoker Tobacco type: cigarettes Smoking end date: 04/14/99 Alcohol intake: never Substance use: current Substance use type: marijuana Other substance usage details: MEDICAL CANNIBAS Last use: Has medical card Lack of Transportation: No Lack of Food: Sometimes True Current Housing: I Have Housing Concerned About Future Housing: No Difficulty Paying Gas/Electric Bills: Decline to Answer Difficulty Paying for Meds: Decline to Answer Currently Unemployed: Decline to Answer Education: High School Diploma/GED Difficulty w/ Childcare or Family Care: No Living arrangements: alone Occupation/Education: other Additional occupation/education comments: Disabled Gender identity (if verbalized by the patient): Male Spiritual care concerns: No Agree to blood products: Yes Exam Narrative: GENERAL: Well-appearing, well-nourished, and in no acute distress. HEAD: Normocephalic, atraumatic. EYES: PERRLA and EOMI. ENT: Nares clear, no rhinorrhea or epistaxis. Mucous membranes moist. NECK: Supple. CHEST: Clear to auscultation. No respiratory distress. HEART: Regular rate and rhythm. ABDOMEN: Soft, nontender, nondistended. EXTREMITIES: Normal range of motion. No edema. SKIN: Warm, dry, no rash. NEURO: No focal deficits. Alert and oriented x3. PSYCH: Normal mood and affect. Course Course Emergency Course: Shortly after I lef
[2023-01-07 01:22] LABS: Add Urine Microscopic? YES
--- NOTE | 2023-01-07 08:50 | ADMGEN ---
This patient, Freddy Saha, was admitted to Medical Room 260-01. Patient/family oriented to hospital policies and general routines including ID bracelet, bed and alarms, visiting hours, pain management, procedures, bathroom and other care routines, personal items, smoking policy, room service/diet, and visiting hours. Information on how to activate the Rapid Response Team has been discussed. Patient/Family are encouraged to report perceived risks to care and to ask questions if they do not understand what they are told or what they should do.
[2023-01-07] MEDS: HYDROcodone/acetaminophen (*CRX) 5-325 MG TABLET 1 TAB PO (12:16)
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
[2023-01-07] MEDS: GABAPENTIN 100 MG CAPSULE PO (16:21)
[2023-01-07] MEDS: HYDROmorphone HCL INJ (*CRX) 1 MG/ML SYR 0.5 MG IV PUSH ×2 (17:12→20:27)
[2023-01-07 18:07] LABS: Hemoglobin A1C 6.8 % (<5.7)
[2023-01-07] MEDS: lisinopriL 20 MG TABLET 40 MG PO (20:28)
[2023-01-07] MEDS: POTASSIUM CHLORIDE 10 MEQ ER TABLET PO (20:28)
[2023-01-07] MEDS: PRAMIPEXOLE 1 MG TABLET PO (20:29)
[2023-01-07] MEDS: FLUTICASONE/SALMETEROL 115-21 MCG INHALER 1 PUFF 2 PUFF INHALATION (21:04)
[2023-01-07] MEDS: levETIRAcetam Tablet 250 MG, levETIRAcetam Tablet 500 MG 750 MG PO (21:29)
[2023-01-07 22:02] LABS: Glucose Point of Care 133 mg/dl (65-105)
[2023-01-08] MEDS: HYDROmorphone HCL INJ (*CRX) 1 MG/ML SYR 0.5 MG IV PUSH ×4 (01:57→12:33)
[2023-01-08 06:00] VITALS: BP 157/80; PULSE 60; RESP 18; TEMP 36.8; O2SAT 95
[2023-01-08] MEDS: LEVOTHYROXINE SODIUM 100 MCG TABLET PO (06:45)
--- NOTE | 2023-01-08 07:03 | WPDURCON ---
Assessment and Plan Assessment and plan (1) Bilateral leg pain: Code(s): M79.604 - Pain in right leg; M79.605 - Pain in left leg Status: Acute (2) Low back pain: Qualifiers: Back pain laterality: bilateral Chronicity: acute Sciatica presence: without sciatica Qualified Code(s): M54.50 - Low back pain, unspecified Code(s): M54.50 - Low back pain, unspecified Status: Acute (3) Testicular pain, unspecified: Code(s): N50.819 - Testicular pain, unspecified Status: Acute Plan Perineal, genital and lower extremity pain without significant urological - Genital and rectal exam unremarkable - CT-pelvis and scrotal u/s without significant findings Suspect neurological pain Low-risk prostate cancer -> on course of active surveillance Urology Consult Note HPI Date Seen: 01/08/23 Requesting Physician: Macey Farfan DO Primary Care Provider: Yunier Petty APRN Consult Narrative Narrative: Freddy Saha is a 62 year old male With known low risk prostate cancer diagnosed initially in February 2013. Confirmatory biopsy in October 2022 showed no identifiable cancer and prostate MRI around that time showed only the very small suspicious lesion. On the biopsy in October did have [id number] prostatic inflammation. Since then he reports progressively severe perineal/ testicular pain that is now radiating down both posterior thighs. He denies voiding or ejaculatory symptoms, fever/chills Review of Systems Review of Systems: All systems reviewed & are unremarkable except as noted in HPI and below PMFSH Past Medical History Medical History Asthma BMI 40.0-44.9, adult COPD (chronic obstructive pulmonary disease) Depression Diabetes Type 2. Last A1c was 6.4 on 12/31/2018 DVT (deep venous thrombosis) Dysphagia Gout Hypercholesterolemia Hypertension Obesity Obstructive sleep apnea Peripheral vascular disease Prostate cancer Seizure After head injury 2010 Sleep apnea Wrist fracture Surgical History Surgical History H/O thumb surgery Left History of biopsy History of colonoscopy with polypectomy Hx of tonsillectomy Family History Family History Father Family history of heart disease in male family member before age 55 Family history of malignant neoplasm of kidney Family history of lung cancer Family history of diabetes mellitus in first degree relative Family history of congestive heart failure Diabetes mellitus Mother Family history of congestive heart failure Anemia Renal failure COPD (chronic obstructive pulmonary disease) Spinal stenosis Social History Social History Social History: Patient lives home alone. He is and has no children. He is disabled. His sister kentrell is his durable power transactional attorney for healthcare. Smoking packs per day: 2 Smoking cigarettes per day: 40.0 Years smoked: 35 Smoking pack-years: 70.00 Smoking status: Never smoker Tobacco type: cigarettes Smoking end date: 04/14/99 Alcohol intake: former Substance use: current Substance use type: marijuana Other substance usage details: medical marijuama use- multiple times a day Last use: Has medical card Lack of Transportation: No Lack of Food: Never True Current Housing: I Have Housing Concerned About Future Housing: No Difficulty Paying Gas/Electric Bills: No Difficulty Paying for Meds: No Currently Unemployed: No Education: High School Diploma/GED Difficulty w/ Childcare or Family Care: No Living arrangements: alone Occupation/Education: other Additional occupation/education comments: Disabled Gender identity (if verbalized by the patient): Male Spiritual care concer
[2023-01-08] MEDS: FLUTICASONE/SALMETEROL 115-21 MCG INHALER 1 PUFF 2 PUFF INHALATION (08:07)
[2023-01-08 08:08] VITALS: O2SAT 95
[2023-01-08] MEDS: GABAPENTIN 100 MG CAPSULE PO ×3 (08:23→18:25)
[2023-01-08] MEDS: ATORVASTATIN 40 MG TABLET PO (08:23)
[2023-01-08] MEDS: FUROSEMIDE 40 MG TABLET PO (08:23)
[2023-01-08] MEDS: PRAMIPEXOLE 1 MG TABLET PO ×2 (08:23→20:17)
[2023-01-08] MEDS: ENOXAPARIN 40 MG/0.4 ML SYRINGE SUB-Q (08:23)
[2023-01-08] MEDS: ASPIRIN 81 MG CHEWABLE TABLET PO (08:23)
[2023-01-08] MEDS: levETIRAcetam Tablet 250 MG, levETIRAcetam Tablet 500 MG 750 MG PO ×2 (08:24→20:16)
[2023-01-08] MEDS: lisinopriL 20 MG TABLET 40 MG PO ×2 (08:24→20:16)
[2023-01-08 08:38] LABS: Glucose Point of Care 133 mg/dl (65-105)
[2023-01-08 12:04] LABS: Glucose Point of Care 166 mg/dl (65-105)
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
[2023-01-08 13:59] VITALS: BP 140/62; PULSE 59; RESP 16; TEMP 36.7; O2SAT 95
[2023-01-08] MEDS: CELECOXIB 100 MG CAPSULE PO (14:22)
[2023-01-08] MEDS: CYCLOBENZAPRINE HCL 10 MG TABLET PO ×2 (14:22→21:02)
--- NOTE | 2023-01-08 14:34 | PC.NURSE ---
On 01/08/23, the student, [Eric Truong], provided care and [facility] on this patient. I have reviewed the student's documentation and agree with the findings.
--- NOTE | 2023-01-08 14:41 | WPDNEUROSGCN ---
Assessment and Plan Assessment and plan (1) Lumbar stenosis: Code(s): M48.061 - Spinal stenosis, lumbar region without neurogenic claudication Status: Acute Plan Freddy Saha is a 62 year old male who presents with claudicatory low back and radicular pain in the setting of lumbar stenosis at L3-4, severe. The patient does have limiting claudicatory symptoms but has not had more than narcotic medications to date. I would advocate for steroids (could intially give 10mg decadron and then 4mg [id number] IV) and then at discharge a medrol dose pack. In addition, muscle relaxants would likely be beneficial I have spoken with Dr. Hong Giron with pain management who could see the patint in the office on Friday 01/12 with a likely injection on 01/13 if the patient is able to discharge to home. Given a lack of motor or sensory symtpoms I do not see an urgent indication for surgical intervention. I will continue to follow Consult date: 01/08/23 HPI: Freddy Saha is a 62 year old male who presented through the ED overnight 01/07 with a complaint of low back pain. The patient associates the onset of symptoms with having undergone a prostate biopsy approximately two months ago, but his symptoms have become progressively worse more recently. The patient states that he has had intermittent symptoms of low back pain over the years, typically self limited. He has not had prior spine imaging nor has he had PT or [facility]. HE has not had prior spine surgery. In the hospital the patient notes back pain with radiation to the anterior thighs bilaterally, much worse with standing or walking any significant distance. He has undergone MR imaging of the lumbar spine that shows multilevel degenerative changes with severe spinal stenosis at L3-4. He denes radiating sensory change. He denies motor weakness. HE denies bowel or bladder dysfunction. [facility] Past Medical History Medical History Asthma BMI 40.0-44.9, adult COPD (chronic obstructive pulmonary disease) Depression Diabetes Type 2. Last A1c was 6.4 on 12/31/2018 DVT (deep venous thrombosis) Dysphagia Gout Hypercholesterolemia Hypertension Obesity Obstructive sleep apnea Peripheral vascular disease Prostate cancer Seizure After head injury 2010 Sleep apnea Wrist fracture Surgical History Surgical History H/O thumb surgery Left History of biopsy History of colonoscopy with polypectomy Hx of tonsillectomy Family History Family History Father Family history of heart disease in male family member before age 55 Family history of malignant neoplasm of kidney Family history of lung cancer Family history of diabetes mellitus in first degree relative Family history of congestive heart failure Diabetes mellitus Mother Family history of congestive heart failure Anemia Renal failure COPD (chronic obstructive pulmonary disease) Spinal stenosis Social History Social History Social History: Patient lives home alone. He is and has no children. He is disabled. His sister kentrell is his durable power claims attorney for healthcare. Smoking packs per day: 2 Smoking cigarettes per day: 40.0 Years smoked: 35 Smoking pack-years: 70.00 Smoking status: Never smoker Tobacco type: cigarettes Smoking end date: 04/14/99 Alcohol intake: former Substance use: current Substance use type: marijuana Other substance usage details: medical marijuama use- multiple times a day Last use: Has medical card Lack of Transportation: No Lack of Food: Never True Current Housing: I Have Housing Concerned About Future Housing: No Difficulty Paying Gas/Electric Bills: No Difficulty Paying for Meds: No Currently Unemployed: No Education:
[2023-01-08 17:16] LABS: Glucose Point of Care 144 mg/dl (65-105)
[2023-01-08 19:29] VITALS: BP 150/59; PULSE 46; RESP 18; TEMP 36.3; O2SAT 96
[2023-01-08] MEDS: POTASSIUM CHLORIDE 10 MEQ ER TABLET PO (20:17)
[2023-01-08 21:25] LABS: Glucose Point of Care 300 mg/dl (65-105)
[2023-01-09 05:54] VITALS: BP 148/64; PULSE 45; RESP 18; TEMP 36.4; O2SAT 95
[2023-01-09] MEDS: CYCLOBENZAPRINE HCL 10 MG TABLET PO ×3 (06:10→22:03)
[2023-01-09] MEDS: LEVOTHYROXINE SODIUM 100 MCG TABLET PO (06:10)
[2023-01-09] MEDS: FLUTICASONE/SALMETEROL 115-21 MCG INHALER 1 PUFF 2 PUFF INHALATION ×2 (08:02→20:38)
[2023-01-09 08:03] VITALS: O2SAT 97
[2023-01-09] MEDS: FUROSEMIDE 40 MG TABLET PO (08:32)
[2023-01-09] MEDS: ASPIRIN 81 MG CHEWABLE TABLET PO (08:32)
[2023-01-09] MEDS: GABAPENTIN 100 MG CAPSULE PO ×3 (08:32→17:02)
[2023-01-09] MEDS: lisinopriL 20 MG TABLET 40 MG PO ×2 (08:32→21:10)
[2023-01-09] MEDS: levETIRAcetam Tablet 250 MG, levETIRAcetam Tablet 500 MG 750 MG PO ×2 (08:32→21:09)
[2023-01-09] MEDS: ENOXAPARIN 40 MG/0.4 ML SYRINGE SUB-Q (08:33)
[2023-01-09] MEDS: CELECOXIB 100 MG CAPSULE PO (08:33)
[2023-01-09] MEDS: ATORVASTATIN 40 MG TABLET PO (08:33)
[2023-01-09] MEDS: PRAMIPEXOLE 1 MG TABLET PO ×2 (08:33→21:09)
[2023-01-09 08:39] LABS: Glucose Point of Care 172 mg/dl (65-105)
[2023-01-09 12:19] LABS: Glucose Point of Care 236 mg/dl (65-105)
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
[2023-01-09 14:53] VITALS: BP 144/57; PULSE 65; RESP 18; TEMP 36.5; O2SAT 98
[2023-01-09 17:06] LABS: Glucose Point of Care 243 mg/dl (65-105)
[2023-01-09 20:43] LABS: Glucose Point of Care 228 mg/dl (65-105)
[2023-01-09 20:46] VITALS: PULSE 67; O2SAT 96
[2023-01-09 21:00] VITALS: BP 140/64; PULSE 61; RESP 20; TEMP 36.9; O2SAT 96
[2023-01-09] MEDS: POTASSIUM CHLORIDE 10 MEQ ER TABLET PO (21:10)
[2023-01-09 23:45] VITALS: PULSE 67; O2SAT 96
[2023-01-10 03:45] VITALS: PULSE 59; O2SAT 94
[2023-01-10 05:04] VITALS: BP 131/45; PULSE 41; RESP 16; TEMP 36.4; O2SAT 94
[2023-01-10] MEDS: LEVOTHYROXINE SODIUM 100 MCG TABLET PO (06:40)
[2023-01-10] MEDS: CYCLOBENZAPRINE HCL 10 MG TABLET PO ×2 (06:40→13:13)
[2023-01-10] MEDS: lisinopriL 20 MG TABLET 40 MG PO (08:02)
[2023-01-10] MEDS: ATORVASTATIN 40 MG TABLET PO (08:02)
[2023-01-10] MEDS: ASPIRIN 81 MG CHEWABLE TABLET PO (08:02)
[2023-01-10] MEDS: levETIRAcetam Tablet 250 MG, levETIRAcetam Tablet 500 MG 750 MG PO (08:02)
[2023-01-10] MEDS: ENOXAPARIN 40 MG/0.4 ML SYRINGE SUB-Q (08:02)
[2023-01-10] MEDS: CELECOXIB 100 MG CAPSULE PO (08:03)
[2023-01-10] MEDS: GABAPENTIN 100 MG CAPSULE PO ×2 (08:03→13:13)
[2023-01-10] MEDS: FUROSEMIDE 40 MG TABLET PO (08:03)
[2023-01-10] MEDS: PRAMIPEXOLE 1 MG TABLET PO (08:03)
[2023-01-10 08:12] LABS: Glucose Point of Care 177 mg/dl (65-105)
[2023-01-10 12:06] LABS: Glucose Point of Care 234 mg/dl (65-105)
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
[2023-01-10] MEDS: DEXAMETHASONE 4 MG TABLET PO (13:13)
[2023-01-10 13:37] VITALS: BP 143/65; PULSE 62; RESP 18; TEMP 36.5; O2SAT 99
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
== END 2023-01-10 15:25 | disposition home or self-care (01) ==
LOC: ANHED 01-07 06:03 → ANH2MED 01-07 15:55
PROVIDERS: Internal Medicine; Admitting Provider Family Medicine; Emergency Provider Emergency Medicine; PCP Nurse Practitioner; Visit Provider Internal Medicine
DX: M79.604 Pain in right leg (principal); M79.605 Pain in left leg; M54.50 Low back pain, unspecified; N50.819 Testicular pain, unspecified; K40.90 Unilateral inguinal hernia, without obstruction or gangrene, not specified as recurrent; J44.89 Other specified chronic obstructive pulmonary disease; F32.A Depression, unspecified; I10 Essential (primary) hypertension; E11.9 Type 2 diabetes mellitus without complications; Z86.718 Personal history of other venous thrombosis and embolism; E78.00 Pure hypercholesterolemia, unspecified; E66.9 Obesity, unspecified; Z68.42 Body mass index [BMI] 45.0-49.9, adult; G47.33 Obstructive sleep apnea (adult) (pediatric); I73.9 Peripheral vascular disease, unspecified; Z98.84 Bariatric surgery status; Z87.891 Personal history of nicotine dependence; F12.90 Cannabis use, unspecified, uncomplicated; Z79.82 Long term (current) use of aspirin; Z79.51 Long term (current) use of inhaled steroids; Z79.899 Other long term (current) drug therapy; Z83.3 Family history of diabetes mellitus; Z84.89 Family history of other specified conditions
CPT/HCPCS: 36415; 72148; 74177; 76870; 80053; 80061; 81001; 82948; 83036; 85025; 85610; 93976; 94640; 96372; 96374; 96375; 96376; 97110; 97161; 97166; 97530; 97535; 99285; A9270; G0378; J1100; J1170; J1650; J8540; Q9967

== ENCOUNTER 2023-01-27 08:46 | Day surgery (SDC) | payer MEDICARE, SELFPAY ==
--- NOTE | ~2023-01-27 | XR_ITS ---
XR fluoroscopy no charge Procedure: Bilateral L3-4 transforaminal epidural steroid injection TECHNIQUE: Fluoroscopy used during Bilateral L3-4 transforaminal epidural steroid injection performe d by [Hong Giron MD] on 01/27/2023. 52 seconds of fluoroscopy with 4 fluoroscopic images ca ptured. ]The DAP for this procedure was [XXXXDAP#.#XXX mGym2. FINDINGS: Correlate with procedure note. IMPRESSION: Fluoroscopy used during Bilateral L3-4 transforaminal epidural steroid injection. Reviewed, dictated and finalized at location B. IMPRESSION: Fluoroscopy used during Bilateral L3-4 transforaminal epidural ster oid injection.
--- NOTE | 2023-01-27 05:24 | WPDHPUPDATE1 ---
History and Physical Update Update Date/Time: 01/27/23 05:24 History and Physical has been reviewed, including an updated exam of the patient. There are NO changes in the patient's condition. Risks, benefits, and alternatives have been discussed and questions answered. Patient agrees to proceed with procedure.
[2023-01-27 10:49] VITALS: BP 131/85; PULSE 64; RESP 18; TEMP 36.4; O2SAT 99
[2023-01-27 11:09] VITALS: BP 153/77; PULSE 68; RESP 16; O2SAT 96
[2023-01-27] MEDS: BETAMETHASONE SODIUM PHOSPHATE PF INJ 6 MG/ML VIAL INFILTRATE (11:18)
[2023-01-27] MEDS: LIDOCAINE HCL 1% PF INJ 5 ML VIAL XX (11:18)
[2023-01-27 11:19] VITALS: BP 173/78; PULSE 68; RESP 16; O2SAT 95
--- NOTE | 2023-01-27 11:23 | W.PM.PROC2 ---
Procedure Note - Detailed Date of Procedure 01/27/23 Pre-op Diagnosis Spinal Stenosis, Lumbar radiculopathy Post-op Diagnosis Same Procedure Performed bilateral L3-4 transforaminal epidural steroid injection under fluoroscopic guidance with contrast control. Surgeon Hong Giron MD Anesthesia Local Indications Chronic, recalcitrant activity limiting bilateral low back and lower extremity symptoms and a L3/L4 distribution with intermittent neurogenic claudication poorly responsive to more conservative care. Description of Procedure INFORMED CONSENT: Risks, benefits and alternatives to the procedure were discussed in detail with the patient who expressed explicit understanding and consent to proceed. Patient was informed verbally and in written form regarding the risks associated with the procedure including the low risk of serious infection, bleeding/bruising, allergic reaction, nerve or organ injury, paralysis, procedural site pain or discomfort, worsening pain and/or mobility, failure to treat and/or disfigurement. The patient expressed explicit understanding and consent to proceed. All materials required for the procedure were available prior to procedure start. Site and side was marked prior to procedure and confirmed in the presence of the patient. PROCEDURE IN DETAIL: The patient was brought to the procedural suite and placed in the prone position. Patient was made comfortable with use of pillows under the head/chest, hips and ankles. Skin overlying the injection site was prepared broadly with ChloraPrep applicator and draped in a sterile manner. Aseptic technique was employed throughout. The endplates of the vertebral body at the site of interest were aligned in the AP view. Ipsilateral oblique angulation was utilized to better visualize the neuroforamen of interest. Local anesthesia was established by infiltration with approximately 5 mL of 2% lidocaine via a 1-1/2 inch 27-gauge needle. A 22-gauge 5.0 inch Prashanth (pencil point) spinal needle was advanced until the needle approached the 6 o'clock position on the pedicle just superior to the exiting nerve root. on the right at L3-4. Lateral view was utilized to confirm appropriate position of the needle tip within the superior and posterior portion of the respective foramen. In an AP view, 1 mL of Omnipaque 300 contrast medium was injected after negative aspiration for CSF, blood or other bodily fluid, showing appropriate neurogram without evidence of intravascular or intrathecal spread of contrast. Digital subtraction imaging was used with an additional 1ml of the same contrast medium to confirm absence of intravascular contrast spread. A 1mL solution containing 5 mg of dexamethasone was injected after negative repeat aspiration. Appropriate spread of the injectate was confirmed with washout of previously injected contrast. No parasthesias were elicited. Needle was removed completely intact without difficulty. The same exact procedure was repeated for all remaining levels on the contralateral side, left L3-4 neuroforamen, modified as necessary to accommodate for the new target location with identical findings and results and no evidence of complication. Images were saved and documented in the patient chart. Patient's skin was cleaned and sterile bandage applied. The patient tolerated the procedure well. The patient was transported to the recovery area in stable condition where they were observed for an appropriate amount of time prior to discharge, without evidence of complication. The patient was instructed to avoid excessive activity for the next 48 hours, including climbing and frequent use of stairs. Showers only for 48 hours. They were instructed not to drive or operate heavy machinery for 24 hours. They are to monitor for severe headaches, fevers, chills, night sweats, erythema/swelling at the site or any other signs of infection, bleeding/bruising, bowel or bladder changes as well as new pain
[2023-01-27 11:25] VITALS: BP 134/84; PULSE 63; RESP 18; O2SAT 97
[2023-01-27] MEDS: LIDOCAINE HCL 2% PF INJ 5 ML VIAL 2 ML INFILTRATE (11:28)
== END 2023-01-27 11:38 | disposition home or self-care (01) ==
PROVIDERS: PCP Family Medicine; Visit Provider Anesthesiology Pain Medicine
PROC: (CPT 64483; principal; 2023-01-27 11:00)
DX: M48.061 Spinal stenosis, lumbar region without neurogenic claudication (principal); M54.16 Radiculopathy, lumbar region
CPT/HCPCS: 64483; 99199

== ENCOUNTER 2023-03-05 11:00 | Outpatient (RCR) | payer MEDICARE, SELFPAY ==
--- NOTE | 2023-02-05 13:26 | OPREHPOC ---
Outpatient Therapy Plan of Care This is a Multidisciplinary Plan of Care that may contain components documented by all disciplines (PT, OT, and ST.) PT Problem 1 PT Problem #1 Knowledge Deficit PT Goal 1 Goal Pt to be IND with issued HEP Target Visit 4 PT Problem 2 PT Problem #2 Pain PT Goal 1 Goal Pt to report back pain no greater than 3/10 in the last week. Target Visit 4 PT Goal 2 Goal Pt to report 75% improvement in overall symptoms. Target Visit 4 PT Problem 3 PT Problem #3 Impaired Range of Motion PT Goal 1 Goal Pt to demonstrate active lumbar ROM without an increase in pain. Target Visit 4 PT Problem 4 PT Problem #4 Impaired Gait PT Goal 1 Goal Pt to improve 2 min walk distance from 302ft to 400ft without AD. Target Visit 4 PT Goal 2 Goal Pt to ambulate stairs without difficulty. Target Visit 4 PT Problem 5 PT Problem #5 Impaired Sensation PT Goal 1 Goal Pt to decline radicular symptoms in the last week. Target Visit 8
--- NOTE | 2023-02-05 13:27 | PTOPEVAL1 ---
Assessment and note entered by Chao Johnson, PT, DPT Evaluation Information Assessment Status Evaluation Diagnosis acute lumbar radiculopathy Onset 1 month Subjective Information Pt states a month ago he instantly got pain from his waist down and did not have any function of his legs. He has to crawl around his home to call [employer]. He states he is currently on a lot of pain medication and when he pain medication wears off his pain instantly starts increasing. 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 He states this episode of back pain happened after helping a friend move. He is currently using a cane, he does not normally use a device. Reported Pain Level Pain Score 3: Self Report Assessment PT Clinical Summary Freddy presents to therapy today for his initial evaluation with a diagnosis of acute lumbar radiculopathy. Today he demonstrates decreased active lumbar ROM in all directions which is limited by pain reports. He demonstrates good LE strength. He is unable to lay supine d/t increased peripheral symptoms. Skilled therapy services are indicated to improve core strength, to manage symptoms, to improve body mechanics, and to return to PLOF. Oswestry: 33/50, 66% disability Plan of Care Interventions Electrical Stimulation,Gait Training,Hot Pack/Cold Pack,Manual Therapy,Mechanical Traction,Neuro Re- education,Patient/Caregiver Educati,Therapeutic Activities,Therapeutic Exercise PT Services Indicated Yes Treatment Frequency and 1x/wk for 4 visits per pt request Duration These treatments will address the objective and functional deficits as defined above. The patient will be advanced safely and appropriately in order for the patient to progress towards his/her prior level of function. Additional exercises will be introduced and as well as a comprehensive home exercise program upon discharge, if needed, ?to ensure carryover of functional gains achieved in the clinic. This treatment plan has been reviewed and agreement upon by the patient.
--- NOTE | 2023-03-05 11:48 | PTOPDC ---
Assessment and note entered by Chao Johnson, PT, DPT Evaluation Information Assessment Status Discharge Diagnosis acute lumbar radiculopathy Onset 1 month Subjective Information Pt states overall he is doing much better, he reports about 100% better. Reported Pain Level Pain Score 0: Self Report Assessment PT Clinical Summary Freddy presents to therapy today for his progress report following 4 visits of skilled therapy to treat his diagnosis of acute lumbar radiculopathy. Today he demonstrates active lumbar ROM that is WNL and does not increase pain. He has met all of his therapy and no longer requires skilled services. He will be discharged at this time. Oswestry: , 24% disability Plan of Care PT Services Indicated No
== END 2023-03-05 12:36 | disposition home or self-care (01) ==
LOC: ANHGOSHPT 11:00
PROVIDERS: PCP Nurse Practitioner; Visit Provider Family Medicine
DX: M48.061 Spinal stenosis, lumbar region without neurogenic claudication (principal); M79.604 Pain in right leg; M79.605 Pain in left leg; M54.50 Low back pain, unspecified; M54.16 Radiculopathy, lumbar region; M48.062 Spinal stenosis, lumbar region with neurogenic claudication; M54.9 Dorsalgia, unspecified; Z68.41 Body mass index [BMI] 40.0-44.9, adult
CPT/HCPCS: 97110; 97112; 97161; 97530

== ENCOUNTER 2023-07-07 08:43 | Outpatient (CLI) | payer MEDICARE, SELFPAY ==
[2023-07-07 09:45] LABS: Alanine Aminotransferase 42 U/L (6-50); Albumin Level 4.1 g/dL (3.5-5.1); Alkaline Phosphatase 75 U/L (38-126); Anion Gap 4 mmol/L (4-12); Aspartate Amino Transferase 38 U/L (17-59); Bilirubin,Total 0.5 mg/dL (0.2-1.3); Blood Urea Nitrogen 18 mg/dL (9-20); Calcium 9.5 mg/dL (8.4-10.2); Carbon Dioxide 32 mmol/L (22-30); Chloride 103 mmol/L (98-107); Cholesterol 118 mg/dL (0-200); Estimated Glomerular Filt Rate > 60; Glucose 156 mg/dL (65-110); HDL Direct 27 mg/dL; Potassium 4.3 mmol/L (3.4-5.0); Sodium 139 mmol/L (137-145); Triglycerides 189 mg/dL (<150)
[2023-07-07 09:57] LABS: LDL Cholesterol Direct 75 mg/dL
[2023-07-07 10:16] LABS: Thyroid Stimulating Hormone 0.987 uIU/mL (0.465-4.680)
[2023-07-07 11:23] LABS: Hemoglobin A1C 7.8 % (<5.7)
== END 2023-07-07 08:44 | disposition home or self-care (01) ==
LOC: ANHLAB 08:45
PROVIDERS: PCP Nurse Practitioner; Visit Provider Nurse Practitioner
DX: E78.5 Hyperlipidemia, unspecified (principal); E11.9 Type 2 diabetes mellitus without complications; E03.9 Hypothyroidism, unspecified
CPT/HCPCS: 36415; 80053; 80061; 83036; 84443

== ENCOUNTER 2024-02-02 10:04 | Outpatient (CLI) | payer MEDICARE, SELFPAY ==
[2024-02-02 11:29] LABS: Thyroid Stimulating Hormone 0.595 uIU/mL (0.465-4.680)
[2024-02-02 11:35] LABS: Alanine Aminotransferase 34 U/L (6-50); Albumin Level 4.4 g/dL (3.5-5.1); Alkaline Phosphatase 79 U/L (38-126); Anion Gap 8 mmol/L (4-12); Aspartate Amino Transferase 30 U/L (17-59); Bilirubin,Total 0.6 mg/dL (0.2-1.3); Blood Urea Nitrogen 18 mg/dL (9-20); Calcium 9.5 mg/dL (8.4-10.2); Carbon Dioxide 32 mmol/L (22-30); Chloride 101 mmol/L (98-107); Cholesterol 132 mg/dL (0-200); Estimated Glomerular Filt Rate > 60; Glucose 144 mg/dL (65-110); HDL Direct 30 mg/dL; LDL Cholesterol Direct 74 mg/dL; Sodium 141 mmol/L (137-145); Triglycerides 131 mg/dL (<150)
[2024-02-02 11:48] LABS: Free T4 Free Thyroxine 1.15 ng/mL (0.78-2.19)
[2024-02-02 12:31] LABS: Creatinine Urine 190.6 mg/dL; Hemoglobin A1C 7.7 % (<5.7)
[2024-02-02 12:36] LABS: MALB Creatinine Ratio 10.8 mg/g (0-30); Microalbumin Urine Random 20.5 mg/L (0-16.7)
== END 2024-02-02 10:05 | disposition home or self-care (01) ==
LOC: ANHLAB 10:06
PROVIDERS: PCP Nurse Practitioner; Visit Provider Nurse Practitioner
DX: E03.9 Hypothyroidism, unspecified (principal); E11.9 Type 2 diabetes mellitus without complications; E78.5 Hyperlipidemia, unspecified
CPT/HCPCS: 36415; 80053; 80061; 82043; 83036; 84439; 84443

== ENCOUNTER 2024-08-04 08:53 | Outpatient (CLI) | payer MEDICARE, SELFPAY ==
--- OUTSIDE RECORDS SUMMARY | 2024-08-04 09:08 | XMS_ITS | Encounter Summary ---
Author Organization [facility] Health Address [address] [facility] [place] [address] Care Team Providers Care Agency Sales Director Name Role Phone Wesley Bryson MD Primary Care Provider [phone] Encounter Details Date Type Department Care Team (Late st Contact Info) Description 11/14/2009 [facility] Valentin Pedraza MD [address] [place] [address] [phone] Social History Tobacco Use Types Packs/Day Years Used Date Smoking Tobacco: Never Assessed Sex and Gender Information Value Date Recorded Sex Assigned at Not on file Legal Sex Male 9:09 AM VP SITE Gender Identity Not on file Sexual Orientation Not on file documented as of this encounter Plan of Treatment Not on file documented as of this encounter Visit Diagnoses Not on filedocumented in this encounter Care Teams Agency Sales Director Relationship Specialty Start Date End Date Wesley Bryson MD [address] [place] [phone] PCP - General 11/02/09 documented as of this encounter
--- OUTSIDE RECORDS SUMMARY | 2024-08-04 09:08 | XMS_ITS | Clinical Summary ---
Author Organization [facility] Address [facility] [place] [address] Care Team Providers Care Manager Performance Name Role Phone Chaparro Acevedo MD Unavailable [phone] Evan Jenkins MD Primary Care Provider [phone] Allergies No known active allergies Medications furosemide (LASIX) 40 MG tablet Take 1 tablet (40 mg total) by mouth daily. Active vitamin D3 (CHOLECALCIFERO L) 25 mcg tablet Take 1 tablet (25 mcg total) by mouth daily. Active potassium chloride CR (KLOR-CON M) 10 MEQ tablet Take 1 tablet (10 mEq total) by mouth nightly. Active levETIRAcetam (KEPPRA) 750 MG tablet Take 1 tablet (750 mg total) by mouth 2 (two) times daily. Active metFORMIN (GLUCOPHAGE) 500 MG tablet Take 1 tablet (500 mg total) by mouth 2 (two) times daily with meals. Active aspirin EC (ECOTRIN) 81 MG tablet Take 1 tablet (81 mg total) by mouth daily. Was told to hold 7 days prior to procedure Active atorvastatin (LIPITOR) 40 MG tablet Take 210 mg by mouth nightly at bedtime. Active lisinopril (PRINIVIL) 40 MG tablet Take 1 tablet (40 mg total) by mouth daily. Active levothyroxine (SYNTHROID) 100 MCG tablet Take 1 tablet (100 mcg total) by mouth every morning. Active pramipexole (MIRAPEX) 1 MG tablet Take 1 tablet (1 mg total) by mouth 2 (two) times a day. Active tadalafil (CIALIS) 10 MG tablet Take 1 tablet (10 mg total) by mouth daily as needed for Erectile Dysfunction. Unsure of dose Active budesonide-form oterol (SYMBICORT) 160-4.5 MCG/ACT inhaler Inhale 2 puffs into the lungs 2 (two) times daily. Active Social History Tobacco Use Types Packs/Day Years Used Date Smoking Tobacco: Former Cigarettes 1 30 1 970 - 1999 Smokeless Tobacco: Never Tobacco Cessation:Counseling Given: Not Answered Alcohol Use Standard Drinks/Week Comments Never 0 (1 standard drink = 0.6 oz pur e alcohol) Sex and Gender Information Value Date Recorded Sex Assigned at Not on file Legal Sex Male 8:26 AM CDT Gender Identity Not on file Sexual Orientation Not on file Last Filed Vital Signs Vital Sign Reading Time Taken Comments Blood Pressure 129/68 11/03/2022 9:25 AM CDT Pulse 55 11/03/2022 9:25 AM CDT Temperature 36.6 C (97.9 F) 11/03/2022 9:25 AM CDT Respiratory Rate 18 11/03/2022 9:25 AM CDT Oxygen Saturation 97% 11/03/2022 9:25 AM CDT Inhaled Oxygen Concentration - - Weight 156.4 kg (344 lb 12.8 oz) 11/03/2022 5:42 AM CDT Height 182.9 cm (6') 11/03/2022 5:42 AM CDT Body Mass Index 46.76 11/03/2022 5:42 AM CDT Plan of Treatment Health Maintenance Due Date Last Done Comments Colorectal Cancer Screening Colonoscopy (10 Years) 1958 Hepatitis C 1976 DTaP, Tdap and Td Vaccines ( 1 - Tdap) 1977 Pneumococcal Vaccine: 50+ Ye ars (1 of 1 - PCV) 2008 Zoster Vaccines (1 of 2) 2008 RSV Immunization or 60+ Years (1 - Risk 60-74 years 1-dose series) 2018 COVID-19 Vaccine ( - 2023-2 5 season) 2023 Meningococcal B Vaccine Aged Out No l onger eligible based on patient's age to complete this topic Meningococcal Vaccine Aged Out No leslie lefty eligible based on patient's age to complete this topic RSV Immunizations Under 20 Months Aged Out No longer eligible based on patient's age to complete this topic Insurance [facility] Care Teams Manager Performance Relationship Specialty Start Date End Date Evan Jenkins MD [address] [place] [id number] PCP - General FAMILY PRACTICE 11/03/22 Chaparro Acevedo MD [address] [address] INTERNAL MEDICINE 10/28/22
--- OUTSIDE RECORDS SUMMARY | 2024-08-04 09:08 | XMS_ITS | Referral Summary ---
Author Organization [facility] [address] Address [facility] [place] [address] Care Team Providers Care Maintenance Coordinator Name Role Phone Patricia Guy Primary Care Provider Allergies No known active allergies Medications aspirin 81 mg enteric coated tablet Take 1 tablet (81 mg total) by mouth daily Active tadalafiL (CIALIS) 20 mg tablet Take 1 tablet (20 mg total) by mouth daily as needed for erectile dysfunction Active levETIRAcetam (KEPPRA) 750 mg tablet Take 1 tablet (750 mg total) by mouth 2 (two) times a day Active levothyroxine (SYNTHROID) 100 mcg tablet Take 1 tablet (100 mcg total) by mouth senior safety management consultant before breakfast Active atorvastatin (LIPITOR) 40 mg tablet Take 1 tablet (40 mg total) by mouth daily Active potassium chloride ER 10 mEq CR tablet Take 1 tablet/capsule (10 mEq total) by mouth daily Active metFORMIN (GLUCOPHAGE) 500 mg tablet Take 1 tablet (500 mg total) by mouth 2 (two) times a day with meals Active furosemide (LASIX) 40 mg tablet Take 1 tablet (40 mg total) by mouth daily Active lisinopriL (PRINIVIL,ZESTR IL) 40 mg tablet Take 1 tablet (40 mg total) by mouth 2 (two) times a day Active budesonide-form oteroL (SYMBICORT) 160-4.5 mcg/actuation inhaler Inhale 2 puffs 2 (two) times a day 3 Active cholecalciferol (VITAMIN D-3) 50,000 unit capsule Take 1 capsule (50,000 Units total) by mouth once a week 3 Active pramipexole (MIRAPEX) 1 mg tablet 3 Active Active Problems Problem Noted Date Diagnosed Date Bradycardia 12/24/2022 Diabetes mellitus 03/18/2014 Hypertension 03/18/2014 Chronic obstructive pulmonary disease 03/18/2014 Malignant neoplasm of prostate 03/18/2014 Brain lesion (from injury) 03/18/2014 Social History Tobacco Use Types Packs/Day Years Used Date Smoking Tobacco: Former Cigarettes 1.5 25 1 975 - 2000 Personal Safety Answer Date Recorded Getting School Help Needed Not on file 05/31 Sex and Gender Information Value Date Recorded Sex Assigned at Not on file 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 Gender Identity Not on file Sexual Orientation Not on file Last Filed Vital Signs Vital Sign Reading Time Taken Comments Blood Pressure 130/70 12/24/2022 9:11 AM CDT Pulse 51 12/24/2022 9:11 AM CDT Temperature - - Respiratory Rate - - Oxygen Saturation 92% 12/24/2022 9:11 AM CDT Inhaled Oxygen Concentration - - Weight 155.1 kg (342 lb) 12/24/2022 9:11 AM CDT Height 181.6 cm (5' 11.5 ) 12/24/2022 9:11 AM CD T Body Mass Index 47.03 12/24/2022 9:11 AM CDT Plan of Treatment Not on file Procedures Procedure Name Priority Date/Time Associated Diagnosis Comments POCT LIPID PANEL Routine 12/24/2022 9:05 AM CDT Lipid screening from Last 3 Months or Most Recently Relevant to Health Maintenance Results * POCT lipid panel (12/24/2022 9:05 AM CDT) Cholesterol, POC 119 mg/dL HDL, POC 27 mg/dL Triglycerides, POC 90 mg/dL LDL Cholesterol POC 74 mg/dL Chol/HDL Ratio, POC 4.3 Non-HDL Cholesterol, POC 92 mg/dL Cholesterol Total, POC 119 mg/dL Capillary blood 12/24/2022 9 :05 AM CDT us Hermann Person MD POINT OF CARE TEST ORDER KATIA Edited Result - Final from Last 3 Months or Most Recently Relevant to Health Maintenance Insurance [facility] MEDICARE ADVANTAGE Care Teams Maintenance Coordinator Relationship Specialty Start Date End Date Patricia Guy PA [address] [phone] PCP - General Physician Cut Order Hand 11/04/22
--- OUTSIDE RECORDS SUMMARY | 2024-08-04 09:08 | XMS_ITS | Clinical Summary ---
Author Organization [facility] Address [address] [place] [address] Care Team Providers Care Patient Access Name Role Phone Wesley Bryson MD Primary Care Provider [phone] Source Comments [facility],non-owned Affiliates and Associated Physician Practices is amultiple site organization consisting of ambulatory clinics and hospital sitesin [place], [place], [place] and [place]. This disclosure is being madepursuant to the Care Everywhere program and may not contain all information available regarding this patient. Last updated 17.[facility] Allergies No known active allergies Medications * Be aware that medications may not be up to date on this document. Alwaysverify current medications with the patient. atorvastatin (Lipitor) 40 MG tablet Take 1 (one) tablet by mouth as directed 06/24/2022 Active Symbicort 160-4.5 MCG/ACT inhaler Inhale 2 (two) puffs by mouth 2 times daily 07/26/2022 Active Cholecalciferol (vitamin D3) 1.25 MG (46495 UT) capsule Take 1 (one) capsule by mouth every 7 days 07/29/2022 Active Farxiga 10 MG tablet Take 1 (one) tablet by mouth once daily 09/06/2021 Active furosemide (Lasix) 40 MG tablet Take 1 (one) tablet by mouth once daily 05/21/2022 Active levETIRAcetam (Keppra) 750 MG tablet Take 1 (one) tablet by mouth once daily 08/19/2022 Active levothyroxine (Synthroid) 100 MCG tablet Take 1 (one) tablet by mouth once daily 08/19/2022 Active lisinopril (Prinivil; Zestril) 40 MG tablet Take 1 (one) tablet by mouth 2 times daily 06/25/2022 Active metFORMIN (Glucophage) 500 MG tablet Take 1 (one) tablet by mouth as directed 07/15/2022 Active potassium chloride ER 10 MEQ tablet Take 1 (one) tablet by mouth as directed 06/24/2022 Active pramipexole (Mirapex) 1 MG tablet Take 1 (one) tablet by mouth as directed 07/29/2022 Active sildenafil (Viagra) 100 MG tablet Take 1 (one) tablet by mouth as directed 12/18/2021 Active tadalafil (Cialis) 20 MG tablet Take 1 (one) tablet by mouth as directed 07/25/2022 Active Active Problems Problem Noted Date Diagnosed Date Parotid mass 08/25/2022 Left hand pain 11/12/2009 PICC (peripherally inserted central catheter) in place 11/02/2009 Social History Tobacco Use Types Packs/Day Years Used Date Smoking Tobacco: Never Smokeless Tobacco: Never Tobacco Cessation:Counseling Given: Not Answered Sex and Gender Information Value Date Recorded Sex Assigned at Not on file 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 Gender Identity Not on file Sexual Orientation Not on file Last Filed Vital Signs Vital Sign Reading Time Taken Comments Blood Pressure 152/80 11/15/2009 2:33 PM CDT Pulse 59 11/15/2009 2:33 PM CDT Temperature - - Respiratory Rate 18 11/15/2009 2:33 PM CDT Oxygen Saturation - - Inhaled Oxygen Concentration - - Weight 136.1 kg (300 lb) 11/15/2009 2:33 PM CDT Height 180.3 cm (5' 11 ) 11/15/2009 2:33 PM CDT Body Mass Index 41.84 11/15/2009 2:33 PM CDT Plan of Treatment Health Maintenance Due Date Last Done Comments COLOGSUSANARD (AGES 45-75) - COL ON CA SCREENING 1958 COLON MONITORING 1958 COLONOSCOPY - COLON CA SCREENING 1958 CT COLONOGRAPHY - COLON CA SCREENING 1958 Colorectal Cancer Screening 1958 FIT - COLON CA SCREENING 1958 FLEX SIG - COLON CA SCREENING 1958 HIV SCREENING 1973 HEPATITIS C SCREENING 08/05/1976 DTAP/TDAP/TD VACCINES (1 - Tdap) 1977 PNEUMOCOCCAL VACCINE 50+ (1 of 1 - PCV) 2008 ZOSTER VACCINE (1 of 2) 2008 Respiratory Syncytial Virus (RSV) Vaccine Pt: or over 60 yrs (1 - Risk 60-74 years 1-dose series) 2018 COVID-19 VACCINE ( - 2023-2 5 season) 2023 DEPRESSION SCREENING 04/06/2024 MEDICARE AWV CALENDAR YEAR 2024 INFLUENZA VACCINE (Season Ended) 2024 HEPATITIS B VACCINE Aged Out No longe r eligible based on patient's age to complete this topic HIB VACCINE Aged Out No longer eligi ble based on patient's age to complete this topic HPV VACCINE Aged Out No longer eligi ble based on patient's age to complete this topic MENINGOCOCCAL (Group B) VACC INE SHARED DECISION-MAKING Aged Out No longer eligibl e based on patient's age to complete this topic MENINGOCOCCAL GROUPS A/C/Y/W VACCINE Aged Out No longer eligible b ased on patient's age to complete this topic Insurance [facility] MEDIC[facility] ADV [facility]IC[facility] ADV Advance Directives * Full Code (Latest Code Status on File) Date Activated Date Inactivated Comments 11/02/2009 10:40 PM 11/20/2009 11:20 PM Care Teams Patient Access Relationship Specialty Start Date End Date Wesley Bryson MD [address] [place] [phone] PCP - General 11/02/09
--- OUTSIDE RECORDS SUMMARY | 2024-08-04 09:08 | XMS_ITS | Clinical Summary ---
Author Organization [facility] [address] [place] Address [address] [place] [phone] Care Team Providers Care County Nurse Name Role Phone Patricia Guy Primary Care [...] 1 tablet (100 mcg total) by mouth bicycle service technician before breakfast Active atorvastatin (LIPITOR) 40 mg [...] prostate 03/18/2014 Brain lesion (from injury) 03/18/2014 Family History Medical History Relation Name Comments Cancer Father Family history of malignant neoplasm - (Added by TW Conv) Diabetes Father Family history of diabetes mellitus - (Added by TW Conv) Hypertension Father Family history of hypertension - (Added by TW Conv) Heart disease Mother Family history of cardiac disorder - (Added by TW Conv) Hypertension Mother Family history of hypertension - (Added by TW Conv) Other Mother Family history of spinal stenosis - (Added by TW Conv) Thyroid disease Mother Family histo ry of thyroid disease - (Added by TW Conv) Relation Name Status Comments Father Mother Social History Tobacco Use Types Packs/Day Years Used Date Smoking Tobacco: Former Cigarettes 1.5 25 1 975 - 1999 Personal Safety Answer Date Recorded Getting School Help Needed Not on file 05/31 Sex and Gender Information Value Date Recorded Sex Assigned at Not on file 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 Gender Identity Not on file Sexual Orientation Not on file Obstetrics History Last Filed Vital Signs Vital Sign Reading [...] 12/24/2022 9:11 AM CDT Plan of Treatment Health Maintenance Due Date Last Done Comments Albumin Creatinine Ratio, Urine 1958 Colon Cancer Screening-Colonoscopy 1958 Depression Screening 1958 Fall Risk Assessment 1958 Hemoglobin A1C 1958 Hepatitis C Screening 1958 Prostate Cancer Screening-PSA 1958 eGFR 1958 Dilated Eye Exam 1958 Foot Exam 1958 DTaP/Tdap/Td Vaccine (1 - Tdap) 1969 Hepatitis B Screening 1976 Pneumococcal vaccine 65+ (1 of 2 - PCV) 1977 Zoster Vaccine (1 of 2) 2008 Abdominal Aortic Aneurysm (AAA) Screen 08/11/2023 Well Visit 65+ 08/11/2023 Influenza Vaccine (#1) 2023 Lipid Panel 12/25/2023 12/24/2022 Procedures Procedure Name Priority Date/Time Associated Diagnosis [...] Capillary blood 12/24/2022 9 :05 AM CDT Hermann Person MD POINT OF CARE TEST ORDER KATIA Edited Result - Final from Last 3 Months or Most Recently Relevant to Health Maintenance Insurance [facility] MEDICARE ADVANTAGE [facility] MEDICARE Address: [facility] [address] [place] [address] Care Teams County Nurse Relationship Specialty Start Date End Date Patricia Guy PA [address] [address] PCP - General Physician General Maintenance Mechanic 11/04/22
[2024-08-04 09:45] LABS: Alanine Aminotransferase 35 U/L (6-50); Albumin Level 4.1 g/dL (3.5-5.1); Alkaline Phosphatase 78 U/L (38-126); Anion Gap 8 mmol/L (4-12); Aspartate Amino Transferase 32 U/L (17-59); Bilirubin,Total 0.4 mg/dL (0.2-1.3); Blood Urea Nitrogen 19 mg/dL (9-20); Carbon Dioxide 32 mmol/L (22-30); Chloride 99 mmol/L (98-107); Cholesterol 133 mg/dL (0-200); Estimated Glomerular Filt Rate > 60; Glucose 131 mg/dL (65-110); HDL Direct 28 mg/dL; Potassium 4.4 mmol/L (3.4-5.0); Sodium 139 mmol/L (137-145); Triglycerides 255 mg/dL (<150)
[2024-08-04 09:48] LABS: Hemoglobin A1C 7.6 % (<5.7)
[2024-08-04 09:56] LABS: LDL Cholesterol Direct 66 mg/dL
[2024-08-04 10:05] LABS: Free T4 Free Thyroxine 1.07 ng/dL (0.78-2.19)
== END 2024-08-04 08:54 | disposition home or self-care (01) ==
LOC: ANHLAB 08:55
PROVIDERS: PCP Nurse Practitioner; Visit Provider Nurse Practitioner
DX: E03.9 Hypothyroidism, unspecified (principal); E78.5 Hyperlipidemia, unspecified; E11.9 Type 2 diabetes mellitus without complications
CPT/HCPCS: 36415; 80053; 80061; 83036; 84439; 84443

== ENCOUNTER 2024-11-01 14:22 | Outpatient (CLI) | payer MEDICARE, SELFPAY ==
--- NOTE | ~2024-11-01 | XR_ITS ---
Left Knee Technique: AP, lateral, and oblique views were obtained. Clinical History: Pain Findings: No fracture or dislocation is seen. Osseous alignment is anatomic. There is mild degenerati ve change of the medial compartment. Soft tissues are unremarkable. No joint effusion is seen. Impression: Mild degenerative change of the medial compartment. Reviewed, dictated and finalized at location . Impression: Mild degenerative change of the medial compartment.
--- OUTSIDE RECORDS SUMMARY | 2024-11-01 14:32 | XMS_ITS | Referral Summary ---
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
--- OUTSIDE RECORDS SUMMARY | 2024-11-01 14:32 | XMS_ITS | Clinical Summary ---
Author Organization [facility] Address [facility] [place] [address] Care Team Providers Care Improvement Lead Name Role Phone Chaparro Acevedo MD Unavailable [phone] Evan Jenkins MD Primary Care Provider [phone] Allergies No known active allergies Medications furosemide [...] - Risk 60-74 years 1-dose series) 2018 Annual Medicare Wellness Visit 08/11/2023 COVID-19 Vaccine ( - 2023-2 5 season) 2023 Meningococcal B Vaccine Aged Out No l onger eligible based on patient's age to complete this topic Meningococcal Vaccine Aged Out No leslie lefty eligible based on patient's age to complete this topic RSV Immunizations Under 20 Months Aged Out No longer eligible based on patient's age to complete this topic Insurance [facility] Care Teams Improvement Lead Relationship Specialty Start Date End Date Evan Jenkins MD [address] [place] [phone] PCP - General FAMILY PRACTICE 11/03/22 Chaparro Acevedo MD [address] [address] INTERNAL MEDICINE 10/28/22
--- OUTSIDE RECORDS SUMMARY | 2024-11-01 14:32 | XMS_ITS | Clinical Summary ---
Author Organization [facility] Address [address] [place] [address] Care Team Providers Care Automation Controls Specialist Name Role Phone Wesley Bryson MD Primary Care Provider [phone] Source Comments [facility],non-owned Affiliates and Associated Physician Practices is amultiple site organization consisting of ambulatory clinics and hospital sitesin [place], [place], [place] and [place]. This disclosure is being madepursuant to the Care Everywhere program and may not contain all information available regarding this patient. Last updated 17.[facility] Allergies No known active allergies Medications * Be aware that medications may not be up to date on this document. Alwaysverify current medications with the patient. 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 Gender Identity Not on file Sexual Orientation [...] 2:33 PM CDT Height 180.3 cm (5' 11) 11/15/2009 2:33 PM CDT Body Mass Index [...] FLEX SIG - COLON CA SCREENING 1958 HEPATITIS C SCREENING 08/05/1976 DTAP/TDAP/TD VACCINES (1 - Tdap) 1977 PNEUMOCOCCAL VACCINE 50+ (1 of 1 - PCV) 2008 ZOSTER VACCINE (1 of 2) 2008 Respiratory Syncytial Virus (RSV) Vaccine Pt: or over 60 yrs (1 - Risk 60-74 years 1-dose series) 2018 COVID-19 VACCINE (1 - 2023-2 5 season) 2023 DEPRESSION SCREENING 04/06/2024 MEDICARE AWV CALENDAR YEAR 2024 INFLUENZA VACCINE (#1) 2024 HEPATITIS B VACCINE Aged Out No [...] patient's age to complete this topic Insurance [facility] MANAGED MEDICARE ADV [facility] MANAGED MEDICARE ADV Advance Directives * Full Code (Latest Code Status on File) Date Activated Date Inactivated Comments 11/02/2009 10:40 PM 11/20/2009 11:20 PM Care Teams Automation Controls Specialist Relationship Specialty Start Date End Date Wesley Bryson MD [address] [place] [phone] PCP - General 11/02/09
--- OUTSIDE RECORDS SUMMARY | 2024-11-01 14:32 | XMS_ITS | Encounter Summary ---
Author Organization 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
--- OUTSIDE RECORDS SUMMARY | 2024-11-01 14:33 | XMS_ITS | Clinical Summary ---
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
== END 2024-11-01 14:23 | disposition home or self-care (01) ==
PROVIDERS: PCP Nurse Practitioner; Visit Provider Nurse Practitioner Adult Health
DX: M17.12 Unilateral primary osteoarthritis, left knee (principal)
CPT/HCPCS: 73564

== ENCOUNTER 2025-01-03 15:39 | Outpatient (CLI) | payer MEDICARE, SELFPAY ==
--- OUTSIDE RECORDS SUMMARY | 2003-12-27 19:00 | XMS_ITS | Continuity of Care Document ---
Author Organization [employer] [facility] Address [address] [place] [address] Phone Care Team Providers Care Pulpit Operator Name Role Phone Femi Gross MD Unavailable Unavailable Advance Directives Directive Yes / No Effective Date File Name No Information Encounters Encounter Description Practice Location Reason(s) For Visit Diagnoses Date Provider Providers Copied on Encounter [facility], [address] [place] [address], [address] [place] [address], tel:[phone] [facility] No Information Ginny KahnMarlin [address] [place], [place], [id number], . tel:[phone] [facility], [address] [place] [address], [id number], tel:[phone] [facility] O[facility]V EFF MED[facility] [address] [place], [place], [id number], . tel:[phone] Family History Family Member Type Diagnosis Age At Onset No Information Payers Payer name Insurance type Covered libertarian ID Authoriza tion(s) No Information Social History Type Description Quantity Date Captured Comments Sex Male Smoking Status No Information Chief Complaint And Reason For Visit No Information Reason For Referral Reason For Referral No Information History Of Present Illness Encounter Date Complaint History Of Prese nt Illness No Information Functional Status Date Functional Assessmen t No Information Instructions Date Instruction Additional Infor mation No Information Assessments Type Assessment Date No Information Patient Care Teams Name Effective Dates (start - stop) Status Members No Information
--- OUTSIDE RECORDS SUMMARY | 2025-01-03 15:43 | XMS_ITS | Clinical Summary ---
Author Organization [facility] Address [address] [place] [address] Care Team Providers Care Steam Conditioner Filling Name Role Phone Wesley Bryson MD Primary Care Provider Source Comments [facility],non-owned Affiliates and Associated Physician Practices is amultiple site organization consisting of ambulatory clinics and hospital sitesin [place], [place], [place] and [place]. This disclosure is being madepursuant to the Care Everywhere program and may not contain all information available regarding this patient. Last updated 17.[facility] Allergies No known active allergies Medications * Be aware that medications may not be up to date on this document. Alwaysverify current medications with the patient. 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 Gender Identity Not on file Sexual Orientation [...] - Risk 60-74 years 1-dose series) 2018 DEPRESSION SCREENING 04/06/2024 MEDICARE AWV CALENDAR YEAR 2024 COVID-19 VACCINE (1 - 2023-2 5 season) 2024 INFLUENZA VACCINE (#1) 2024 HEPATITIS B [...] patient's age to complete this topic Insurance [facility] MANAGED MEDICARE ADV [facility] MANAGED MEDICARE ADV Advance Directives * Full Code (Latest Code Status on File) Date Activated Date Inactivated Comments 11/02/2009 10:40 PM 11/20/2009 11:20 PM Care Teams Steam Conditioner Filling Relationship Specialty Start Date End Date Wesley Bryson MD [address] [place] [phone] PCP - General 11/02/09
--- OUTSIDE RECORDS SUMMARY | 2025-01-03 15:43 | XMS_ITS | Clinical Summary ---
Author Organization [facility] Address Pending sale to [facility] [place] [address] Care Team Providers Care Smoke Control Supervisor Name Role Phone Chaparro Acevedo MD Unavailable [phone] Evan Jenkins MD Primary Care Provider [phone] Allergies No known active allergies Medications furosemide [...] Annual Medicare Wellness Visit 08/11/2023 COVID-19 Vaccine (1 - 2023-2 5 season) 2024 Meningococcal B Vaccine Aged Out No l onger eligible based on patient's age to complete this topic Meningococcal Vaccine Aged Out No leslie lefty eligible based on patient's age to complete this topic RSV Immunizations Under 20 Months Aged Out No longer eligible based on patient's age to complete this topic Insurance [facility] MEDICARE Care Teams Smoke Control Supervisor Relationship Specialty Start Date End Date Evan Jenkins MD [address] [place] [address] PCP - General FAMILY PRACTICE 11/03/22 Chaparro Acevedo MD [address] [address] INTERNAL MEDICINE 10/28/22
--- OUTSIDE RECORDS SUMMARY | 2025-01-03 15:43 | XMS_ITS | Clinical Summary ---
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 Gender Identity Not on file Sexual Orientation [...] Dilated Eye Exam 1960 Foot Exam 1958 Hepatitis B Screening 1976 Pneumococcal vaccine 65+ (1 of 2 - PCV) 1977 Zoster Vaccine (2 of 2) 07/23/2021 05/28/2021 Abdominal Aortic Aneurysm (A AA) Screen 08/11/2023 Well Visit 65+ 08/11/2023 Lipid Panel 12/25/2023 12/24/2022 Influenza Vaccine (#1) 2024 , 03/12/2019, 04/19/2012 DTaP/Tdap/Td Vaccine (2 - Td or Tdap) 05/28/2031 Procedures Procedure Name Priority Date/Time Associated Diagnosis [...] Most Recently Relevant to Health Maintenance Insurance [facility] MEDICARE ADVANTAGE Care Teams Head Sawyer Relationship Specialty Start Date End Date Patricia Guy PA [address] [address] PCP - General Physician Wet End Tester 11/04/22
--- OUTSIDE RECORDS SUMMARY | 2025-01-03 15:43 | XMS_ITS | Encounter Summary ---
Author Organization [facility] Address [address] 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
[2025-01-03 17:20] LABS: Prostate Specific Antigen 6.9 ng/mL (< OR = 4.0)
== END 2025-01-03 15:40 | disposition home or self-care (01) ==
LOC: ANHLAB 15:41
PROVIDERS: PCP Nurse Practitioner; Visit Provider Urology
DX: C61 Malignant neoplasm of prostate (principal)
CPT/HCPCS: 36415; 84153

== ENCOUNTER 2025-01-25 08:28 | Outpatient (CLI) | payer MEDICARE, SELFPAY ==
--- NOTE | ~2025-01-25 | XR_ITS ---
XR lumbar spine 2-3V Indication: M54.5 - Low back pain Comparison: None Findings: The vertebral heights are intact. No fracture or subluxation. Moderate loss of disc at L4-5 and L5-S1 Soft tissues unremarkable Impression: No acute abnormality. Reviewed, dictated and finalized at location P. Impression: No acute abnormality.
--- NOTE | ~2025-01-25 | XR_ITS ---
EXAMINATION: XR knee LT 3V, 01/25/2025 8:45 CDT HISTORY: M25.562 - Pain in left knee COMPARISON: No comparisons available. Findings: No acute fracture or malalignment. Moderate tricompartmental degenerative changes, small effusion Soft tissues unremarkable. Impression: No acute fracture or malalignment. Reviewed, dictated and finalized at location P. Impression: No acute fracture or malalignment.
--- OUTSIDE RECORDS SUMMARY | 2025-01-25 08:53 | XMS_ITS | Encounter Summary ---
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
--- OUTSIDE RECORDS SUMMARY | 2025-01-25 08:53 | XMS_ITS | Clinical Summary ---
Author Organization [facility] Address [address] [place] [address] Care Team Providers Care Public Affairs Director Name Role Phone Wesley Bryson MD Primary Care Provider [phone] Source Comments [facility],non-owned Affiliates and Associated Physician Practices is amultiple site organization consisting of ambulatory clinics and hospital sitesin [place], [place] and [place]. This disclosure is being madepursuant to the Care Everywhere program and may not contain all information available regarding this patient. Last updated 17.[facility] Allergies No known active allergies Medications * Be aware that medications may not be up to date on this document. Alwaysverify current medications with the patient. 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
--- OUTSIDE RECORDS SUMMARY | 2025-01-25 08:53 | XMS_ITS | Clinical Summary ---
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
[2025-01-25 09:40] LABS: Hemoglobin A1C 6.2 % (<5.7)
[2025-01-25 09:52] LABS: Alanine Aminotransferase 26 U/L (6-50); Albumin Level 4.2 g/dL (3.5-5.1); Alkaline Phosphatase 61 U/L (38-126); Anion Gap 9 mmol/L (4-12); Aspartate Amino Transferase 28 U/L (17-59); Bilirubin,Total 0.5 mg/dL (0.2-1.3); Blood Urea Nitrogen 21 mg/dL (9-20); Calcium 9.3 mg/dL (8.4-10.2); Carbon Dioxide 31 mmol/L (22-30); Chloride 100 mmol/L (98-107); Cholesterol 133 mg/dL (0-200); Estimated Glomerular Filt Rate > 60; Glucose 110 mg/dL (65-110); HDL Direct 30 mg/dL; Potassium 4.1 mmol/L (3.4-5.0); Sodium 140 mmol/L (137-145); Total Protein 7.3 g/dL (6.3-8.2); Triglycerides 184 mg/dL (<150)
== END 2025-01-25 08:29 | disposition home or self-care (01) ==
LOC: ANHLAB 08:30
PROVIDERS: PCP Nurse Practitioner; Visit Provider Nurse Practitioner
DX: M25.562 Pain in left knee (principal); M54.50 Low back pain, unspecified; G89.29 Other chronic pain; E78.5 Hyperlipidemia, unspecified; E11.9 Type 2 diabetes mellitus without complications
CPT/HCPCS: 36415; 72100; 73562; 80053; 80061; 83036